=== PATIENT | female | born 1990 | race African-American/Black ===

== ENCOUNTER 2016-07-13 22:46 | Emergency (ER) | payer SELFPAY ==
[~2016-07-13] VITALS: Ht 170.2 cm; Wt 86.0 kg
[~2016-07-13 22:46] MED LIST: CLIN1CAP5 PO; PROM25SU8 PO; TYLETAB34 PO
[2016-07-13 22:49] VITALS: BP 152/94; PULSE 87; RESP 16; TEMP 98.2; O2SAT 98
[2016-07-13 23:43] LABS: BLOOD, URINE NEG (NEG); COMMENT (UR) CULT NOT INDICATED; CULTURE IF INDICATED CULT NOT INDICATED; GLUCOSE,URINE NEG (NEG); KETONE, URINE NEG (NEG); MUCUS URINE MOD /lpf (OCC); NITRITE,URINE NEG (NEG); SQUAMOUS EPITHELIAL CELL URINE 8 /hpf (0-5); URINE COLOR YELLOW (YELLW/STRAW)
--- NOTE | 2016-07-13 23:43 | PD ---
HPI Chief Complaint: Abdominal Pain Time Seen by Provider: 23:15 Travel History International Travel<30 days: No Contact w/Intl Traveler<30days: No Traveled to known affect area: No History of Present Illness HPI 26-year-old female complains of pain, low abdominal pain. Patient states that she started having low abdominal pain sharp pain constant pain since yesterday. Patient started having low back pain this morning. Patient denies any headache. Patient denies any chest pain or shortness of breath. Patient denies any dysuria or frequency. Patient denies any vaginal discharge or bleeding. Patient states the back pain is sharp pain in cramping pain constant pain also. Patient states that the back pain is worse with movement. On a scale of 1-10 the pain is an 8. PFSH Past Medical History Immunizations Current: Yes Influenza Vaccination: No ?: Unknown LMP: 17 : 1 : 1 Past Surgical History Oral Surgery: Yes (7 TEETH REMOVAL ) Social History Alcohol Use: Yes (OCC) Tobacco Use: No (OCC) Substance Use: No Allergies-Medications (Allergen,Severity, Reaction): Coded Allergies: No Known Allergies (Unverified , 07/13/16) Reported Meds & Prescriptions Reported Meds & Active Scripts Active Review of Systems General / Constitutional: No: Fever Eyes: No: Visual changes HENT: No: Headaches Cardiovascular: No: Chest Pain or Discomfort Respiratory: No: Shortness of Breath Gastrointestinal: Positive: Abdominal Pain Genitourinary: No: Dysuria Musculoskeletal: No: Pain Skin: No Rash Neurologic: No: Weakness Psychiatric: No: Depression Endocrine: No: Polydipsia Hematologic/Lymphatic: No: Easy Bruising Physical Exam Narrative GENERAL: Well-nourished, well-developed patient. SKIN: Focused skin assessment warm/dry. HEAD: Normocephalic. EYES: No scleral icterus. No injection or drainage. NECK: Supple, trachea midline. No JVD or lymphadenopathy. CARDIOVASCULAR: Regular rate and rhythm without murmurs, gallops, or rubs. RESPIRATORY: Breath sounds equal bilaterally. No accessory muscle use. GASTROINTESTINAL: Abdomen soft, nondistended. Mild to moderate tenderness on palpation lower abdominal suprapubic area, no rebound tenderness no mass. MUSCULOSKELETAL: No cyanosis, or edema. BACK: Moderate tenderness on palpation lumbar area, without obvious deformity. No CVA tenderness. Neurologic exam normal. [employer] exam: Patient has small amount a whitish discharge in the vaginal vault. Questionable cervical motion tenderness. Uterus nonenlarged mild to moderate tenderness on palpation. No adnexal mass or tenderness. Data Data Last Documented VS Vital Signs Date Time Temp Pulse Resp B/P Pulse Ox O2 Delivery O2 Flow Rate FiO2 07/13/16 22:49 98.2 87 16 152/94 98 Room Air Orders Ed Urine Pregnancytest Poc (07/13/16 23:12) Urinalysis - C+S If Indicated (07/13/16 23:12) Complete Blood Count With Diff (07/13/16 23:37) Comprehensive Metabolic Panel (07/13/16 23:37) Gc And Chlamydia Pcr (07/13/16 23:37) Wet Prep Profile (07/13/16 23:37) Iv Access Insert/Monitor (07/13/16 23:37) Spine, Lumbar - Ltd (Ap & Lat) (07/13/16 23:43) Ketorolac Inj (Toradol Inj) (07/14/16 01:15) Ceftriaxone Inj (Rocephin Inj) (07/14/16 01:15) Azithromycin Powd Pack (Zithromax Powd P (07/14/16 01:15) Labs Laboratory Tests Test 07/13/16 07/14/16 07/14/16 23:15 00:30 01:05 Urine Color YELLOW Urine Turbidity HAZY Urine pH 6.0 Urine Specific [place] 1.036 Urine Protein 30 mg/dL Urine Glucose (UA) NEG mg/dL Urine Ketones NEG mg/dL Urine Occult Blood NEG Urine Nitrite NEG Urine Bilirubin NEG Urine Urobilinogen 2.0 MG/DL Urine Leukocyte Esterase SMALL Urine RBC 1 /hpf Urine WBC 1 /hpf Urine Squamous Epithelial 8 /hpf Cells Urine Mucus MOD /lpf Microscopic Urinalysis Comment CULT NOT INDICATED White Blood Count 10.8 TH/MM3 Red Blood Count 4.07 MIL/MM3 Hemoglobin 11.8 GM/DL Hematocrit 35.9 % Mean Corpuscular Volume 88.2 FL Mean Corpuscular Hemoglobin 29.0 PG Mean Corpuscular Hemoglobin 32.9 % Concent Red Cell Distribution Width 12.6 % Platelet Count 234 TH/MM3 Mean Platelet Volume 9.9 FL Neutrophils (%) (Auto) 62.0 % Lymphocytes (%) (Auto) 26.5 % Monocytes (%) (Auto) 7.2 % Eosinophils (%) (Auto) 4.0 % Basophils (%) (Auto) 0.3 % Neutrophils # (Auto) 6.7 TH/MM3 Lymphocytes # (Auto) 2.9 TH/MM3 Monocytes # (Auto) 0.8 TH/MM3 Eosinophils # (Auto) 0.4 TH/MM3 Basophils # (Auto) 0.0 TH/MM3 CBC Comment DIFF FINAL Differential Comment Sodium Level 141 MEQ/L Potassium Level 3.9 MEQ/L Chloride Level 107 MEQ/L Carbon Dioxide Level 27.1 MEQ/L Anion Gap 7 MEQ/L Blood Urea Nitrogen 14 MG/DL Creatinine 0.86 MG/DL Estimat Glomerular Filtration 98 ML/MIN Rate Random Glucose 107 MG/DL Calcium Level 8.6 MG/DL Total Bilirubin 0.3 MG/DL Aspartate Amino Transf 15 U/L (AST/SGOT) Alanine Aminotransferase 20 U/L (ALT/SGPT) Alkaline Phosphatase 81 U/L Total Protein 7.8 GM/DL Albumin 3.5 GM/DL Clue Cells (Wet Prep) NONE SEEN Vaginal Trichomonas (Wet Prep) NONE SEEN Vaginal Yeast (Wet Prep) NONE SEEN MDM Medical Decision Making Medical Screen Exam Complete: Yes Emergency Medical Condition: Yes Interpretation(s) 1:06 AM. Last Impressions Lumbar Spine X-Ray 07/13/16 4003 Signed Impressions: Service Date/Time: Thursday, July 14, 2016 00:05 - CONCLUSION: Unremarkable study. Kay Keen MD 1:06 AM. CBC within normal limit. UA is negative. 1:49 AM. CMP within normal limit. Wet prep negative. Differential Diagnosis Differential diagnosis including musculoskeletal, UTI, pyelonephritis, nephrolithiasis, dysmenorrhea, cervicitis, PID, ovarian cyst, ovarian torsion, ectopic . Narrative Course 26-year-old female with low abdominal pain and low back pain. Toradol 30 mg IV. Rocephin 1 g IV. Zithromax 1 g by mouth. Diagnosis Primary Impression: Cervicitis Additional Impression: Lumbar strain Qualified Code: S39.012A - Lumbar strain, initial encounter Patient Instructions: General Instructions Additional Instructions: Take medications as directed. Follow-up with personal physician. Return if worse. Med/Other Pt SpecificInfo: Prescription(s) given Scripts Methocarbamol (Robaxin)750 Mg Xsl298 Mg PO QID #40 TAB Ref 0 Prov:Riley aFust MD 07/14/16 Meloxicam (Mobic)15 Mg Tab15 Mg PO DAILY #20 TAB Prov:Riley Faust MD 07/14/16 Disposition: 01 DISCHARGE HOME Condition: Stable Riley Faust MD Jul 13, 2016 23:43
--- NOTE | 2016-07-14 00:20 | RADRPT ---
EXAM DATE/TIME: 07/14/2016 00:05 [facility] COMPARISON: No previous studies available for comparison. INDICATIONS : Lower back pain. MEDICAL HISTORY : None. SURGICAL HISTORY : None. ENCOUNTER: Initial ACUITY: 1 day PAIN SCORE: 4/10 LOCATION: Lumbar FINDINGS: No appreciable compression deformities, spondylolisthesis, or spondylolysis is seen. The disc spaces are well-maintained for technique. CONCLUSION: Unremarkable study. Kay Keen MD on July 14, 2016 at 0:18 Board Certified Radiologist. This report was verified electronically.
[2016-07-14 00:56] LABS: AUTOMATED NEUTROPHIL # 6.7 TH/MM3 (1.8-7.7); BASOPHIL % 0.3 % (0.0-2.0); EOSINOPHIL # 0.4 TH/MM3 (0-0.4); HEMATOCRIT 35.9 % (35.0-46.0); HEMO FLAGS DIFF FINAL; LYMPH % 26.5 % (9.0-44.0); LYMPHOCYTE # 2.9 TH/MM3 (1.0-4.8); MEAN CELL VOLUME 88.2 FL (80.0-100.0); MEAN CORPUSCULAR HGB CONC 32.9 % (32.0-36.0); MONO % 7.2 % (0.0-8.0); PLATELET COUNT 234 TH/MM3 (150-450); RED BLOOD COUNT 4.07 MIL/MM3 (4.00-5.30); RED CELL DISTRIBUTION WIDTH 12.6 % (11.6-17.2); WHITE BLOOD COUNT 10.8 TH/MM3 (4.0-11.0)
[2016-07-14] MEDS ORDERED: cefTRIAXone INJ 1,000 MG in SODIUM CHLORIDE 0.9% INJ 100 ML IV ONE (01:15)
[2016-07-14] MEDS ORDERED: KETOROLAC TROMETHAMINE 30 MG/ML (IVP) VIAL IV PUSH ONE (01:15)
[2016-07-14] MEDS ORDERED: AZITHROMYCIN PWD FOR SUSP 1 GM PACKET PO ONE (01:15)
[2016-07-14 01:28] LABS: ANION GAP 7 MEQ/L (5-15); AST (GOT) 15 U/L (15-37); BICARBONATE 27.1 MEQ/L (21.0-32.0); BLOOD UREA NITROGEN 14 MG/DL (7-18); CHLORIDE 107 MEQ/L (98-107); GLOMERULAR FILTRATION RATE 98 ML/MIN (>89); POTASSIUM 3.9 MEQ/L (3.5-5.1); SODIUM (NA) 141 MEQ/L (136-145)
[2016-07-14 01:31] LABS: ALKALINE PHOSPHATASE 81 U/L (45-117); ALT (GPT) 20 U/L (10-53); TOTAL BILIRUBIN ADULT 0.3 MG/DL (0.2-1.0)
[2016-07-14] MEDS ORDERED: MOBI15TA PO (01:51)
[2016-07-14] MEDS ORDERED: ROBA750T PO (01:51)
[2016-07-14] MEDS ORDERED: ONDANSETRON HCL 4 MG/2 ML VIAL IV PUSH ONE (02:45)
[2016-07-14 02:48] VITALS: BP 140/78; PULSE 86; RESP 18; TEMP 98.7; O2SAT 100
[2016-07-14 02:50] VITALS: RESP 18
[2016-07-14 03:17] LABS: CHLAMYDIA PCR NOT DETECTED (NOT DETECT); NEISSERIA PCR NOT DETECTED (NOT DETECT)
== END 2016-07-14 02:45 | disposition home or self-care (01) ==
LOC: NEPE 22:46
DX: N72 Inflammatory disease of cervix uteri (principal); S39.012A Strain of muscle, fascia and tendon of lower back, initial encounter; X58.XXXA Exposure to other specified factors, initial encounter
CPT/HCPCS: 72100; 80053; 81001; 84703; 85025; 87210; 87491; 87591; 96365; 96375; 99284; J0696; J1885; J2405

== ENCOUNTER 2016-07-16 06:47 | Emergency (ER) | payer SELFPAY ==
[~2016-07-16 06:47] MED LIST changes: -CLIN1CAP5 PO; +MOBI15TA PO; -PROM25SU8 PO; +ROBA750T PO; -TYLETAB34 PO
[2016-07-16 06:48] VITALS: BP 135/81; PULSE 96; RESP 18; TEMP 97.8; O2SAT 97
--- NOTE | 2016-07-16 07:28 | PD ---
HPI Chief Complaint: Back/ Neck Pain or Injury Time Seen by Provider: 07:26 Travel History International Travel<30 days: No Contact w/Intl Traveler<30days: No Traveled to known affect area: No History of Present Illness HPI 26-year-old female presents to the emergency Department with complaint of low back pain times one week. She says she was seen here 2 days ago, but has had worsening upper back pain. Denies injury, heavy lifting, straining. She's been taking Mobic and Robaxin as prescribed with minimal relief of symptoms. Denies fever, vomiting. Denies IV drug use, cancer. Denies encopresis, incontinence, saddle anesthesias. Denies paresthesias, loss of sensation, decreased range of motion, decreased strength to bilateral lower extremities. States the pain radiates down both legs. Pain is worse with movement and ambulation. No known relieving factors. No known allergies. Has no other medical complaints. No other modifying factors or associated signs and symptoms. PFSH Past Medical History Immunizations Current: Yes ?: Not : 1 : 1 Past Surgical History Oral Surgery: Yes (7 TEETH REMOVAL ) Social History Alcohol Use: Yes (OCC) Tobacco Use: No (OCC) Substance Use: No Allergies-Medications (Allergen,Severity, Reaction): Coded Allergies: No Known Allergies (Unverified , 07/16/16) Reported Meds & Prescriptions Reported Meds & Active Scripts Active Robaxin (Methocarbamol) 750 Mg Tab 750 Mg PO QID Mobic (Meloxicam) 15 Mg Tab 15 Mg PO DAILY Review of Systems Except as stated in HPI: all other systems reviewed are Neg Physical Exam Narrative GENERAL: Well-nourished, well-developed female patient, in no acute distress; afebrile, nontoxic-appearing SKIN: Warm and dry. HEAD: Atraumatic. Normocephalic. EYES: Pupils equal and round. No scleral icterus. No injection or drainage. ENT: Mucosa pink and moist. Airway patent. NECK: Trachea midline. CARDIOVASCULAR: Regular rate. RESPIRATORY: No accessory muscle use. GASTROINTESTINAL: Rounded. MUSCULOSKELETAL: Bilateral lower extremities supple and non-tense with 2+ pedal pulses and sensory intact; with full range of motion and 5/5 strength. 2 + DTRs bilaterally. Active dorsiflexion and extension of bilateral feet. Bilateral straight leg raise is positive for low back pain. Ambulatory in room with guarded gait. Sitting up in bed at 90. No obvious deformities. No clubbing. No cyanosis. No edema. BACK: No midline point tenderness on palpation of the lumbar spine. Tenderness on palpation of bilateral iliosacral area. No obvious deformities. NEUROLOGICAL: Awake and alert. Oriented 3. No obvious cranial nerve deficits. Motor grossly within normal limits. Normal speech. Moves all extremities. 5/5 strength to all extremities. Sensory intact. PSYCHIATRIC: Appropriate mood and affect; insight and judgment normal. Data Data Last Documented VS Vital Signs Date Time Temp Pulse Resp B/P Pulse Ox O2 Delivery O2 Flow Rate FiO2 07/16/16 06:48 97.8 96 18 135/81 97 Room Air Orders Ketorolac Inj (Toradol Inj) (07/16/16 07:30) Orphenadrine Inj (Norflex Inj) (07/16/16 07:30) MDM Medical Decision Making Medical Screen Exam Complete: Yes Emergency Medical Condition: Yes Medical Record Reviewed: Yes Differential Diagnosis Sciatica, acute low back pain, low back strain Narrative Course 26-year-old female with continued low back pain. She was seen on July 13 and was treated for cervicitis. I reviewed her medical records and the patient was negative for chlamydia, gonorrhea, trichomoniasis, clue cells, vaginal yeast; urinalysis was negative for infection; CBC and CMP were unremarkable. Lumbar spine x-ray done on July 13 was unremarkable. Patient denies IV drug use or cancer. Denies fever, vomiting. Denies encopresis, incontinence, saddle anesthesias. Patient is ambulatory in the room with a guarded gait. She is afebrile and nontoxic-appearing. Toradol and Norflex administered in the ER. Instructed patient to continue medications as prescribed. Patient verbalizes understanding and agreement with treatment plan. Patient is medically cleared and stable for discharge. Discussed reasons to return to the emergency department. Instructed patient to follow up with primary care provider. Patient agrees with treatment plan. The patients vital signs are stable and the patient is stable for outpatient follow-up and treatment. Patient discharged home, stable and in no acute distress. Diagnosis Primary Impression: Low back pain Qualified Code: M54.5 - Bilateral low back pain, unspecified chronicity, with sciatica presence unspecified Referrals: Primary Care Physician Patient Instructions: Acute Low Back Pain (ED), Back Pain (ED), General Instructions, Low Back Strain (ED), Sciatica (ED) Departure Forms: Tests/Procedures, Work Release Enter return to work date: Jul 19, 2016 Additional Instructions: Tylenol or ibuprofen as directed and as needed for pain Robaxin as prescribed and as needed for muscle spasms Heating pad and/or ice to affected area to reduce pain Avoid aggravating activities; increase activity as tolerated Follow-up with primary care provider Med/Other Pt SpecificInfo: No Change to Meds, No Meds Exist/No RX given Disposition: 01 DISCHARGE HOME Condition: Stable Nikole Ambrose Jul 16, 2016 07:28
[2016-07-16] MEDS ORDERED: ORPHENADRINE INJ 60 MG/2 ML AMP IM ONE (07:30)
[2016-07-16] MEDS ORDERED: KETOROLAC TROMETHAMINE 60 MG/2 ML (IM) VIAL IM ONE (07:30)
== END 2016-07-16 07:46 | disposition home or self-care (01) ==
LOC: NEPK 06:47
DX: M54.5 Low back pain (principal)
CPT/HCPCS: 96372; 99284; J1885; J2360

== ENCOUNTER 2016-09-29 16:44 | Emergency (ER) | payer SELFPAY ==
[~2016-09-29] VITALS: Ht 170.2 cm; Wt 95.0 kg
[2016-09-29 18:18] LABS: AUTOMATED NEUTROPHIL # 5.8 TH/MM3 (1.8-7.7); BASOPHIL % 0.3 % (0.0-2.0); EOSINOPHIL # 0.2 TH/MM3 (0-0.4); EOSINOPHIL % 2.5 % (0.0-4.0); HEMATOCRIT 35.6 % (35.0-46.0); HEMO FLAGS DIFF FINAL; LYMPH % 25.6 % (9.0-44.0); LYMPHOCYTE # 2.4 TH/MM3 (1.0-4.8); MEAN CELL VOLUME 91.8 FL (80.0-100.0); MEAN CORPUSCULAR HGB CONC 32.6 % (32.0-36.0); MONO % 10.4 % (0.0-8.0); NEUT % 61.2 % (16.0-70.0); PLATELET COUNT 237 TH/MM3 (150-450); RED BLOOD COUNT 3.88 MIL/MM3 (4.00-5.30); RED CELL DISTRIBUTION WIDTH 12.9 % (11.6-17.2); WHITE BLOOD COUNT 9.4 TH/MM3 (4.0-11.0)
[2016-09-29 18:28] LABS: BLOOD, URINE NEG (NEG); COMMENT (UR) CULT NOT INDICATED; CULTURE IF INDICATED CULT NOT INDICATED; GLUCOSE,URINE NEG (NEG); KETONE, URINE NEG (NEG); MUCUS URINE FEW /lpf (OCC); NITRITE,URINE NEG (NEG); SQUAMOUS EPITHELIAL CELL URINE 8 /hpf (0-5); URINE COLOR YELLOW (YELLW/STRAW)
[2016-09-29 18:47] LABS: ANION GAP 6 MEQ/L (5-15); AST (GOT) 9 U/L (15-37); BICARBONATE 25.5 MEQ/L (21.0-32.0); BLOOD UREA NITROGEN 8 MG/DL (7-18); CHLORIDE 107 MEQ/L (98-107); GLOMERULAR FILTRATION RATE 108 ML/MIN (>89); POTASSIUM 3.6 MEQ/L (3.5-5.1); SODIUM (NA) 138 MEQ/L (136-145)
[2016-09-29 18:48] LABS: ALT (GPT) 15 U/L (10-53)
[2016-09-29 19:07] LABS: ALKALINE PHOSPHATASE 80 U/L (45-117); BETA HCG QUANT 32078 MIU/ML (0-5); TOTAL BILIRUBIN ADULT 0.7 MG/DL (0.2-1.0)
--- NOTE | 2016-09-29 19:19 | PD ---
HPI Chief Complaint: Abdominal Pain Time Seen by Provider: 19:17 Travel History International Travel<30 days: No Contact w/Intl Traveler<30days: No Traveled to known affect area: No History of Present Illness HPI Patient comes in complaining of suprapubic abdominal pain is crampy like in nature began a week ago. Pain radiates to left lower quadrant. Patient reports associated nausea but denies any vomiting, diarrhea, loss change in bowel or bladder, vaginal discharge, chest pain, shortness breath, back pain, or fevers. Patient reports she is sexually active with one partner and does not use protection. Patient states pain comes and goes on it. States pain resolves with rest. Patient denies doing anything else for this. Patient denies anything making the pain worse. Patient reports she is A1 PFSH Past Medical History Immunizations Current: Yes ?: Unknown LMP: 08/15/16 : 1 : 1 Past Surgical History Oral Surgery: Yes (7 TEETH REMOVAL ) Social History Alcohol Use: Yes (OCC) Tobacco Use: No (OCC) Substance Use: No Allergies-Medications (Allergen,Severity, Reaction): Coded Allergies: No Known Allergies (Unverified , 07/16/16) Reported Meds & Prescriptions Reported Meds & Active Scripts Active Robaxin (Methocarbamol) 750 Mg Tab 750 Mg PO QID Mobic (Meloxicam) 15 Mg Tab 15 Mg PO DAILY Review of Systems Except as stated in HPI: all other systems reviewed are Neg Physical Exam Narrative GENERAL: Well-developed, overly nourished, in no acute distress, and non-ill appearing. SKIN: Focused skin assessment warm and dry. HEAD: Atraumatic. Normocephalic. EYES: Pupils equal and round. EOMI. No scleral icterus. No injection or drainage. ENT: No nasal bleeding or discharge. Mucous membranes pink and moist. NECK: Trachea midline. Supple. No nuclear rigidity. CARDIOVASCULAR: Regular rate and rhythm. No murmur appreciated. RESPIRATORY: No accessory muscle use. No respiratory distress. Clear to auscultation. Breath sounds equal bilaterally. GASTROINTESTINAL: Abdomen soft, nondistended, and no guarding. Hepatic and splenic margins not palpable. Normal bowel sounds 4. No pulsatile mass. Patient reports tenderness to palpation suprapubic and left lower quadrant. GENITOURINARY: Normal external genitalia without lesions or erythema. Vaginal vault without blood, but milky white discharge. Cervical os was closed without drainage. No cervical motion tenderness. Uterus nontender and nonenlarged. Right adnexa nontender without palpable mass. Left adnexa patient reports tenderness without palpable mass. Exam was performed with presence of staff sonographer Shira at all times. MUSCULOSKELETAL: No obvious deformities. No clubbing. No cyanosis. No edema. Full range of motion. NEUROLOGICAL: Awake and alert. No obvious cranial nerve deficits. Motor grossly within normal limits. Normal speech. PSYCHIATRIC: Appropriate mood and affect; insight and judgment normal. Data Data Orders Complete Blood Count With Diff (09/29/16 17:05) Comprehensive Metabolic Panel (09/29/16 17:05) Urinalysis - C+S If Indicated (09/29/16 17:05) Ed Urine Pregnancytest Poc (09/29/16 17:05) Iv Access Insert/Monitor (09/29/16 17:05) Oxygen Administration (09/29/16 17:05) Oximetry (09/29/16 17:05) Lipase (09/29/16 17:05) Beta Hcg (Quant/Titer) (09/29/16 17:05) Gc And Chlamydia Pcr (09/29/16 19:04) Wet Prep Profile (09/29/16 19:04) Complete Rh (09/29/16 19:36) Us Pelvis (Ques Pr/Ect)W Trans (09/29/16 ) Labs Laboratory Tests Test 09/29/16 09/29/16 09/29/16 17:11 17:21 19:40 Urine Color YELLOW Urine Turbidity HAZY Urine pH 6.0 Urine Specific [place] 1.015 Urine Protein TRACE mg/dL Urine Glucose (UA) NEG mg/dL Urine Ketones NEG mg/dL Urine Occult Blood NEG Urine Nitrite NEG Urine Bilirubin NEG Urine Urobilinogen LESS THAN 2.0 MG/DL Urine Leukocyte Esterase LARGE Urine RBC 2 /hpf Urine WBC 7 /hpf Urine Squamous Epithelial 8 /hpf Cells Urine Amorphous Sediment RARE Urine Mucus FEW /lpf Microscopic Urinalysis Comment CULT NOT INDICATED White Blood Count 9.4 TH/MM3 Red Blood Count 3.88 MIL/MM3 Hemoglobin 11.6 GM/DL Hematocrit 35.6 % Mean Corpuscular Volume 91.8 FL Mean Corpuscular Hemoglobin 30.0 PG Mean Corpuscular Hemoglobin 32.6 % Concent Red Cell Distribution Width 12.9 % Platelet Count 237 TH/MM3 Mean Platelet Volume 10.3 FL Neutrophils (%) (Auto) 61.2 % Lymphocytes (%) (Auto) 25.6 % Monocytes (%) (Auto) 10.4 % Eosinophils (%) (Auto) 2.5 % Basophils (%) (Auto) 0.3 % Neutrophils # (Auto) 5.8 TH/MM3 Lymphocytes # (Auto) 2.4 TH/MM3 Monocytes # (Auto) 1.0 TH/MM3 Eosinophils # (Auto) 0.2 TH/MM3 Basophils # (Auto) 0.0 TH/MM3 CBC Comment DIFF FINAL Differential Comment Sodium Level 138 MEQ/L Potassium Level 3.6 MEQ/L Chloride Level 107 MEQ/L Carbon Dioxide Level 25.5 MEQ/L Anion Gap 6 MEQ/L Blood Urea Nitrogen 8 MG/DL Creatinine 0.79 MG/DL Estimat Glomerular Filtration 108 ML/MIN Rate Random Glucose 78 MG/DL Calcium Level 8.2 MG/DL Total Bilirubin 0.7 MG/DL Aspartate Amino Transf 9 U/L (AST/SGOT) Alanine Aminotransferase 15 U/L (ALT/SGPT) Alkaline Phosphatase 80 U/L Total Protein 7.4 GM/DL Albumin 3.6 GM/DL Lipase 221 U/L Human Chorionic Gonadotropin, 8[address]15 MIU/ML Quant Clue Cells (Wet Prep) PRESENT Vaginal Trichomonas (Wet Prep) NONE SEEN Vaginal Yeast (Wet Prep) NONE SEEN MDM Medical Decision Making Medical Screen Exam Complete: Yes Emergency Medical Condition: Yes Interpretation(s) Ultrasound read by the radiologist shows: Viable IUP. Differential Diagnosis UTI, ectopic , normal pains , constipation, ovarian cyst, cervicitis, electrolyte abnormality, PID, other Narrative Course The patient presented with lower abdominal/pelvic pain and the patient was minimal to nontender. The pain is not rhythmic. The patient otherwise appeared comfortable and hydrated. There was no vaginal bleeding. US was performed and showed SIUP at 6 weeks 2 days and normal cardiac activity. Urine analysis revealed no evidence of UTI. There was no evidence of cervicitis or PID. Pain is most likely due to ligamental pains or normal discomforts of , possibly due to ovarian cyst or constipation and evaluation revealed no clinical evidence or picture of acute ovarian torsion at this time. The patient appears comfortable and no distress and no vomiting. The patient is to return if worsens, pain worsens or changes, develops vaginal bleeding, develop persistent fever, inability to tolerate fluids with or without vomiting, unable to establish follow up or as needed. There was no evidence of an acute, surgical abdomen at this time. There was no clinical evidence to support cholecystitis/cholelithiasis, pancreatitis, perforation of gastric ulcer, colitis, diverticulitis, obstruction, abdominal or femoral herniation, volvulus , early appendicitis, or hernial incarceration or strangulation at this time. There was no evidence to support vascular pathology such as AAA, mesenteric ischemia , nor GIB. There was also no clinical evidence by history, exam or risk factors to suggest atypical presentation of cardiac disease such as ACS, AMI or atypical angina. No evidence to suggest early labor or obvious miscarriage at this time. The patient agreed with plan of care and management. The patient was instructed to follow up with their OB physician within the next 2 days or to return here if unable to establish outpatient follow-up. Patient in no obvious distress upon re-evaluation. All pertinent laboratory/ Radiology result(s) discussed with patient with exception of gonorrhea and Chlamydia and Rh are pending at this time. Patient is not bleeding does not require a RhoGAM shot if Rh isn't compatible.. Will wait and let OB to treat patient's bacterial vaginosis. Discussed patient with Dr. Anderson prior to discharge, who is in agreement with plan of care and disposition. Any questions/ concerns in reference to patient diagnosis/condition discussed and clarified prior to patient's discharge. Reinforced sheer importance of close follow up with patient's OB 2 days for reevaluation. Instructed patient to return to ED immediately, if symptoms return/worsen. Pt showed understanding of above instructions. Further instructions and recommendations were detailed in discharge paperwork. Pt ambulated without difficulty out of ED at discharge. Diagnosis Primary Impression: Abdominal pain in Qualified Code: O26.891 - Abdominal pain during in first trimester Additional Impression: Bacterial vaginosis [facility] Patient Instructions: Abdominal Pain in (ED), Bacterial Vaginosis ( ED), General Instructions Additional Instructions: Follow-up with your OB or return here in 48 hours for a recheck. Use over-the- counter vitamins. Return to the emergency department sooner if symptoms get worse, fevers, vaginal bleeding, back pain, chest pain, shortness breath, or for other concerns. Disposition: 01 DISCHARGE HOME Condition: Jean Pierre David Sep 29, 2016 19:19
--- NOTE | 2016-09-29 21:05 | RADRPT ---
EXAM DATE/TIME: 09/29/2016 20:17 [facility] COMPARISON: No previous studies available for comparison. INDICATIONS : Pelvic pain. LAB(S): Beta-hC MEDICAL HISTORY : . SURGICAL HISTORY : Dental surgery. ENCOUNTER: Initial ACUITY: 2 days PAIN SCORE: 2/10 LOCATION: Bilateral pelvis MEASUREMENTS: UTERUS: 9.1 x 5.2 x 5.3 cm ENDOMETRIAL STRIPE: >20 mm RIGHT OVARY: 3.2 x 2.2 x 2.0 cm LEFT OVARY: 4.2 x 2.1 x 1.6 cm FREE FLUID: Yes CROWN RUMP LENGTH: 0.54 cm = 6 WKS 2 DAYS FHR: 134 BPM FINDINGS: IUP is present 6 weeks and 2 days with heart 134 beats per minute. There is slight fluid in the cul-de-sac. There is no adnexal mass. CONCLUSION: Viable IUP. Kay Keen MD on September 29, 2016 at 21:02 Board Certified Radiologist. This report was verified electronically.
[2016-09-29 23:43] LABS: CHLAMYDIA PCR NOT DETECTED (NOT DETECT); NEISSERIA PCR NOT DETECTED (NOT DETECT)
[2016-11-01] MEDS ORDERED: CONCCAP2 PO (14:11)
[2016-11-06] MEDS ORDERED: METR500T10 PO (13:03)
[2016-11-06] MEDS ORDERED: TERC0.8C VAGINAL (13:03)
[2016-11-12] MEDS ORDERED: AMPI500C8 PO (16:36)
[2016-11-13] MEDS ORDERED: METR500T10 PO (16:29)
[2016-11-13] MEDS ORDERED: AMPI500C8 PO (16:29)
[2016-11-13] MEDS ORDERED: CONCCAP2 PO (16:29)
[2016-11-13] MEDS ORDERED: TERC0.8C VAGINAL (16:29)
== END 2016-09-29 22:00 | disposition home or self-care (01) ==
LOC: NEPE 16:44
DX: O26.891 Other specified pregnancy related conditions, first trimester (principal); R10.2 Pelvic and perineal pain; R10.32 Left lower quadrant pain; R11.0 Nausea; O23.591 Infection of other part of genital tract in pregnancy, first trimester; N76.0 Acute vaginitis; Z72.0 Tobacco use; Z3A.01 Less than 8 weeks gestation of pregnancy
CPT/HCPCS: 76700; 76817; 80053; 81001; 83690; 84702; 84703; 85025; 86901; 87210; 87491; 87591; 99284

== ENCOUNTER 2016-10-07 10:57 | Emergency (ER) | payer OTHER ==
[2016-10-07 10:58] VITALS: BP 122/80; PULSE 82; RESP 20; TEMP 98.2; O2SAT 99
[2016-10-07 12:01] LABS: BACTERIA, URINE MANY /hpf; BLOOD, URINE MOD (NEG); COMMENT (UR) CULTURE INDICATED; CULTURE IF INDICATED CULTURE INDICATED; GLUCOSE,URINE NEG (NEG); KETONE, URINE 40 mg/dL (NEG); MUCUS URINE MOD /lpf (OCC); NITRITE,URINE NEG (NEG); PH, URINE 6.5 (5.0-8.5); SQUAMOUS EPITHELIAL CELL URINE 33 /hpf (0-5); URINE COLOR YELLOW (YELLW/STRAW)
[2016-10-07] MEDS ORDERED: MACR100C2 PO (12:31)
--- NOTE | 2016-10-07 12:31 | PD ---
HPI Chief Complaint: Related Problem Time Seen by Provider: 11:20 Travel History International Travel<30 days: No Contact w/Intl Traveler<30days: No Traveled to known affect area: No History of Present Illness HPI This is a 26-year-old woman who presents to the emergency department complaining of left-sided abdominal pain. Symptoms been ongoing for the past several weeks. She was seen here for initially. She is found to be . She had ultrasound confirmed IUP. She's had continued pain since then. She has some decreased appetite but no nausea or vomiting. No vaginal discharge or vaginal bleeding. No history of abdominal surgeries. She is to go more than usual but no dysuria. History Past Medical History Medical History: Denies Significant Hx : 2 Social History Alcohol Use: No Tobacco Use: No Allergies-Medications (Allergen,Severity, Reaction): Coded Allergies: No Known Allergies (Unverified , 10/07/16) Reported Meds & Prescriptions Reported Meds & Active Scripts Active Review of Systems Except as stated in HPI: all other systems reviewed are Neg Physical Exam Narrative GENERAL: Well-appearing 26 year-old woman, no acute distress. SKIN: Focused skin assessment warm/dry. HEAD: Atraumatic. Normocephalic. EYES: Pupils equal and round. No scleral icterus. No injection or drainage. ENT: No nasal bleeding or discharge. Mucous membranes pink and moist. NECK: Trachea midline. No JVD. CARDIOVASCULAR: Regular rate and rhythm. No murmur appreciated. RESPIRATORY: No accessory muscle use. Clear to auscultation. Breath sounds equal bilaterally. GASTROINTESTINAL: Abdomen is flat and soft. Minimal left-sided tenderness to palpation more in the lower abdomen. MUSCULOSKELETAL: No obvious deformities. No clubbing. No cyanosis. No edema. NEUROLOGICAL: Awake and alert. No obvious cranial nerve deficits. Motor grossly within normal limits. Normal speech. PSYCHIATRIC: Appropriate mood and affect; insight and judgment normal. Data Data Last Documented VS Vital Signs Date Time Temp Pulse Resp B/P (MAP) Pulse Ox O2 Delivery O2 Flow Rate FiO2 10/07/16 10:58 98.2 82 20 122/80 (94) 99 Room Air Orders Orders Urinalysis - C+S If Indicated (10/07/16 11:28) Ed Poc Ultrasound (10/07/16 ) Urine Culture (10/07/16 11:34) Labs Laboratory Tests Test 10/07/16 11:34 Urine Color YELLOW Urine Turbidity CLOUDY Urine pH 6.5 Urine Specific [place] 1.031 Urine Protein 30 mg/dL Urine Glucose (UA) NEG mg/dL Urine Ketones 40 mg/dL Urine Occult Blood MOD Urine Nitrite NEG Urine Bilirubin NEG Urine Urobilinogen 2.0 MG/DL Urine Leukocyte Esterase LARGE Urine RBC 15 /hpf Urine WBC 15 /hpf Urine Squamous Epithelial Cells 33 /hpf Urine Bacteria MANY /hpf Urine Mucus MOD /lpf Microscopic Urinalysis Comment CULTURE INDICATED MDM Medical Decision Making Medical Screen Exam Complete: Yes Emergency Medical Condition: Yes Interpretation(s) Plan care ultrasound: Focus transabdominal child perform immediate value well-being. Unable to really visualize the IUP. UA: Pyuria. Differential Diagnosis UTI, pain, infection, other Narrative Course Medical decision-making new para this is a well-appearing 26 old woman presents to the emergency department with pain. She looks well. A little bit tenderness. She has some pyuria. Check culture. We'll treat for infection. Recommend outpatient follow-up. Tylenol for pain. Diagnosis Primary Impression: Abdominal pain in Med/Other Pt SpecificInfo: Prescription(s) given Scripts Nitrofurantoin Monohydrate Macrocrystals (Macrobid) 100 Mg Capsule 100 MG PO BID for Infection for 5 Days, CAP 0 Refills Prov: Rickey Hollingsworth MD 10/07/16 Disposition: 01 DISCHARGE HOME Condition: Stable Rickey Hollingsworth MD Oct 07, 2016 12:31
[2016-10-07] MEDS ORDERED: PYRI25TA2 PO (12:47)
[2016-11-01] MEDS ORDERED: CONCCAP2 PO (14:11)
[2016-11-06] MEDS ORDERED: TERC0.8C VAGINAL (13:03)
[2016-11-06] MEDS ORDERED: METR500T10 PO (13:03)
[2016-11-12] MEDS ORDERED: AMPI500C8 PO (16:36)
[2016-11-13] MEDS ORDERED: AMPI500C8 PO (16:29)
[2016-11-13] MEDS ORDERED: METR500T10 PO (16:29)
[2016-11-13] MEDS ORDERED: TERC0.8C VAGINAL (16:29)
[2016-11-13] MEDS ORDERED: CONCCAP2 PO (16:29)
== END 2016-10-07 12:51 | disposition home or self-care (01) ==
LOC: NEPD 10:57
DX: O26.90 Pregnancy related conditions, unspecified, unspecified trimester (principal); R10.9 Unspecified abdominal pain
CPT/HCPCS: 81001; 87086; 99284

== ENCOUNTER 2016-11-20 23:12 | Emergency (ER) | payer OTHER ==
[~2016-11-20] VITALS: Ht 170.2 cm; Wt 85.0 kg
[~2016-11-20 23:12] MED LIST changes: +AMPI500C8 PO; +CONCCAP2 PO; +METR500T10 PO; -MOBI15TA PO; -ROBA750T PO; +TERC0.8C VAGINAL
[2016-11-20 23:14] VITALS: BP 126/85; PULSE 101; RESP 16; TEMP 98.7; O2SAT 97
[2016-11-20] MEDS ORDERED: SODIUM CHLOR 0.9% 1000 ML INJ 1,000 ML IV ONE (23:59)
[2016-11-21 00:23] LABS: AUTOMATED NEUTROPHIL # 7.5 TH/MM3 (1.8-7.7); BASOPHIL % 0.1 % (0.0-2.0); EOSINOPHIL # 0.3 TH/MM3 (0-0.4); EOSINOPHIL % 3.1 % (0.0-4.0); HEMATOCRIT 33.8 % (35.0-46.0); HEMO FLAGS DIFF FINAL; LYMPH % 18.5 % (9.0-44.0); MEAN CELL VOLUME 90.1 FL (80.0-100.0); MEAN CORPUSCULAR HEMOGLOBIN 29.6 PG (27.0-34.0); MEAN CORPUSCULAR HGB CONC 32.8 % (32.0-36.0); MONO % 9.2 % (0.0-8.0); NEUT % 69.1 % (16.0-70.0); PLATELET COUNT 230 TH/MM3 (150-450); RED BLOOD COUNT 3.75 MIL/MM3 (4.00-5.30); RED CELL DISTRIBUTION WIDTH 13.2 % (11.6-17.2); WHITE BLOOD COUNT 10.8 TH/MM3 (4.0-11.0)
[2016-11-21 00:31] LABS: BLOOD, URINE NEG (NEG); CALCIUM OXALATE CRYSTALS,URINE OCC /hpf; COMMENT (UR) CULT NOT INDICATED; CULTURE IF INDICATED CULT NOT INDICATED; GLUCOSE,URINE NEG (NEG); KETONE, URINE NEG (NEG); MUCUS URINE FEW /lpf (OCC); NITRITE,URINE NEG (NEG); PH, URINE 7.5 (5.0-8.5); SQUAMOUS EPITHELIAL CELL URINE 2 /hpf (0-5); URINE COLOR YELLOW (YELLW/STRAW)
--- NOTE | 2016-11-21 00:42 | PD ---
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 The pain is constant although it waxes and wanes in severity. She is a at 13 plus weeks gestation with her first . She also noticed when taking her shower tonight that she had a thick chunky discharge. It is off white. She denies any odor. She has urinary frequency, however she denies any urinary urgency or dysuria. She cannot recall the name of her [employer]. She denies having any new sexual partners or concerns about sexually transmitted infections. The patient denies any history of fevers, neck pain, chest pain, shortness of breath, vomiting, diarrhea, dysuria, or neurologic symptoms. She has had a dry cough for a couple of weeks. LMP: beginning of August. [facility] Past Medical History Narrative Medical The patient's past medical history is reportedly none. Medical History: Denies Significant Hx Diminished Hearing: No Immunizations Current: Yes ?: LMP: 08/27 : 2 : 1 Past Surgical History Narrative Surgical The patient's past surgical history is reportedly dental surgery. Oral Surgery: Yes (7 TEETH REMOVAL ) Social History Alcohol Use: No Tobacco Use: No Substance Use: No Allergies-Medications (Allergen,Severity, Reaction): Coded Allergies: No Known Allergies (Unverified , 11/20/16) Reported Meds & Prescriptions Reported Meds & Active Scripts Active Terazol 7 Vaginal Cream (Terconazole Vaginal Cream) 0.4 % Cream 1 Appl VAGINAL HS 7 Days 1 applicatorful intravaginally x 7 nights Ampicillin 500 Mg Cap 500 Mg PO QID 10 Days Terconazole Vaginal Cream 0.8 % Cream 1 Appl VAGINAL HS For 3 days. Metronidazole 500 Mg Tab 500 Mg PO BID Concept Dha 53.5-38-1 mg ( Vit W/ Fe Fum-Iron Po) 35 Mg-1 Mg-200 Mg Cap 1 Caplet PO DAILY Review of Systems Except as stated in HPI: all other systems reviewed are Neg General / Constitutional: No: Fever Eyes: No: Visual changes HENT: No: Headaches Cardiovascular: No: Chest Pain or Discomfort Respiratory: No: Shortness of Breath Gastrointestinal: Positive: Abdominal Pain, No: Nausea, Vomiting, Diarrhea Genitourinary: Positive: Pelvic Pain, Discharge, No: Dysuria, Vaginal Bleeding Musculoskeletal: No: Pain Skin: No Rash Neurologic: No: Weakness Psychiatric: No: Depression Endocrine: No: Polydipsia Hematologic/Lymphatic: No: Easy Bruising Physical Exam Narrative General: The patient is a well-developed well-nourished female in no acute distress Head and Neck exam: Head is normocephalic atraumatic. Eyes: EOMI, pupils are equal round and reactive to light. Nose: Midline septum with pink mucous membranes Mouth: Dentition unremarkable. Moist mucus membranes. Posterior oropharynx is not erythematous. No tonsillar hypertrophy. Uvula midline. Airway patent. Neck: No palpable lymphadenopathy. No nuchal rigidity. No thyromegaly. Cardiovascular: Regular rate and rhythm without murmurs, gallops, or rubs. Lungs: Clear to auscultation bilaterally. No wheezes, rhonchi, or rales. Abdomen: Soft, with suprapubic abdominal tenderness on palpation. No other tenderness on palpation of the other quadrants of the abdomen. Normal bowel sounds are audible. No guarding, rebound, or rigidity. Normal bowel sounds are audible. No tenderness on palpation of McBurney's point. Extremities: No clubbing, cyanosis, or edema. 2+ pulses in all 4 extremities. Back: No costovertebral angle tenderness to palpation. Neurologic Exam: Grossly nonfocal. Skin Exam: No rash noted. Intact skin that is warm and dry. Gynecologic exam: The patient was placed in the dorsal lithotomy position. Her external genitalia were examined. She had no evidence of rash or lesions. The speculum was placed into her vagina and the cervix was identified. She had a thick yellow discharge noted associated with cervical friability. On Bimanual exam: she has no cervical motion tenderness. No adnexal tenderness or prominence noted on palpation. No uterine tenderness, however her uterus did palpate to be enlarged consistent with her . Data Data Last Documented VS Vital Signs Date Time Temp Pulse Resp B/P (MAP) Pulse Ox O2 Delivery O2 Flow Rate FiO2 11/21/16 03:32 11/21/16 03:15 98.0 86 18 100 Room Air Orders Orders Beta Hcg (Quant/Titer) (11/20/16 23:59) Complete Blood Count With Diff (11/20/16 23:59) Comprehensive Metabolic Panel (11/20/16:59) Gc And Chlamydia Pcr (11/20/16 23:59) Complete Rh (11/20/16 23:59) Wet Prep Profile (11/20/16 23:59) Urinalysis - C+S If Indicated (11/20/16:59) Iv Access Insert/Monitor (11/20/16:59) Ecg Monitoring (11/20/16:59) Sodium Chlor 0.9% 1000 Ml Inj (Ns 1000 M (11/20/16 23:59) Ed Poc Ultrasound (11/20/16:59) Ceftriaxone Inj (Rocephin Inj) (11/21/16 01:30) Azithromycin Powd Pack (Zithromax Powd P (11/21/16 01:30) Ondansetron Inj (Zofran Inj) (11/21/16 03:15) Labs Laboratory Tests Test 11/21/16 00:05 11/21/16 01:10 White Blood Count 10.8 TH/MM3 Red Blood Count 3.75 MIL/MM3 Hemoglobin 11.1 GM/DL Hematocrit 33.8 % Mean Corpuscular Volume 90.1 FL Mean Corpuscular Hemoglobin 29.6 PG Mean Corpuscular Hemoglobin Concent 32.8 % Red Cell Distribution Width 13.2 % Platelet Count 230 TH/MM3 Mean Platelet Volume 8.9 FL Neutrophils (%) (Auto) 69.1 % Lymphocytes (%) (Auto) 18.5 % Monocytes (%) (Auto) 9.2 % Eosinophils (%) (Auto) 3.1 % Basophils (%) (Auto) 0.1 % Neutrophils # (Auto) 7.5 TH/MM3 Lymphocytes # (Auto) 2.0 TH/MM3 Monocytes # (Auto) 1.0 TH/MM3 Eosinophils # (Auto) 0.3 TH/MM3 Basophils # (Auto) 0.0 TH/MM3 CBC Comment DIFF FINAL Differential Comment Urine Color YELLOW Urine Turbidity HAZY Urine pH 7.5 Urine Specific [place] 1.021 Urine Protein TRACE mg/dL Urine Glucose (UA) NEG mg/dL Urine Ketones NEG mg/dL Urine Occult Blood NEG Urine Nitrite NEG Urine Bilirubin NEG Urine Urobilinogen LESS THAN 2.0 MG/DL Urine Leukocyte Esterase LARGE Urine RBC 5 /hpf Urine WBC 5 /hpf Urine Squamous Epithelial Cells 2 /hpf Urine Calcium Oxalate Crystals OCC /hpf Urine Amorphous Sediment RARE Urine Mucus FEW /lpf Microscopic Urinalysis Comment CULT NOT INDICATED Blood Urea Nitrogen 5 MG/DL Creatinine 0.56 MG/DL Random Glucose 86 MG/DL Total Protein 6.9 GM/DL Albumin 3.1 GM/DL Calcium Level 8.4 MG/DL Alkaline Phosphatase 55 U/L Aspartate Amino Transf (AST/SGOT) 10 U/L Alanine Aminotransferase (ALT/SGPT) 17 U/L Total Bilirubin 0.4 MG/DL Sodium Level 138 MEQ/L Potassium Level 3.6 MEQ/L Chloride Level 107 MEQ/L Carbon Dioxide Level 23.7 MEQ/L Anion Gap 7 MEQ/L Estimat Glomerular Filtration Rate 161 ML/MIN Human Chorionic Gonadotropin, Quant 80839 MIU/ML Clue Cells (Wet Prep) NONE SEEN Vaginal Trichomonas (Wet Prep) NONE SEEN Vaginal Yeast (Wet Prep) PRESENT Chlamydia trachomatis DNA (PCR) NOT DETECTED Neisseria gonorrhoeae DNA (PCR) NOT DETECTED MDM Medical Decision Making Medical Screen Exam Complete: Yes Emergency Medical Condition: Yes Medical Record Reviewed: Yes Differential Diagnosis Gonorrhea, versus chlamydia, versus trichomoniasis, versus yeast vaginitis, versus bacterial vaginosis, versus urinary tract infection, versus threatened miscarriage Narrative Course During the course of the patients emergency department visit, the patients history, examination, and differential diagnosis were reviewed with the patient. The patient had [-] IV access obtained and blood work sent for analysis. The patient was initially provided normal saline 1 L IV fluid bolus. The patient was given Rocephin 1 g IV, Zithromax 1 g by mouth after a pelvic examination revealed a yellow discharge with cervical friability. The patients laboratory studies were reviewed and remarkable for wet prep is positive for yeast. CBC is remarkable for a hemoglobin of 11.1, CMP is remarkable for a BUN of 5, calcium 8.4, AST 10, quantitative beta hCG is 45,044 , urinalysis shows large leukocyte esterase 5 RBCs occasional calcium oxalate crystals, no bacteria. Culture not indicated. The patient's blood type is B+. A bedside ultrasound was done by me and confirmed heart activity, active fetus on examination. The patient will be discharged home with a prescription for Terazol. The patient is resting comfortably and feels better, is alert and in no distress. The patients results and examination findings were discussed with the patient. The repeat examination is unremarkable and benign. The history, exam, diagnostic testing, and current condition do not suggest any significant pathology to warrant further testing, continued ED treatment, admission, or surgical evaluation at this point. The vital signs have been stable. The patient does not have uncontrollable pain, intractable vomiting, or other significant symptoms. The patient's condition is stable and appropriate for discharge. The patient will pursue further outpatient evaluation with a primary care physician or other designated or consulting physician as indicated in the discharge instructions. The patient expressed understanding and was agreeable with this plan. Procedures Procedure Narrative Emergency Department Pelvic ultrasound was performed with patient consent. The curvilinear probe was used in the transverse and sagittal views within the suprapubic region revealing [-] intrauterine . heart rate was [- ]. See this measures [-] by [-]. 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 Med/Other Pt SpecificInfo: Prescription(s) given Scripts Terconazole Vaginal Cream (Terazol 7 Vaginal Cream) 0.4 % Cream 1 APPL VAGINAL HS for Fungal Infection for 7 Days, #45 GM 0 Refills 1 applicatorful intravaginally x 7 nights Prov: Sakina Renteria MD 11/21/16 Disposition: 01 DISCHARGE HOME Condition: Stable Sakina Renteria MD Nov 21, 2016 00:42
[2016-11-21 00:50] LABS: ALT (GPT) 17 U/L (10-53); ANION GAP 7 MEQ/L (5-15); AST (GOT) 10 U/L (15-37); BICARBONATE 23.7 MEQ/L (21.0-32.0); BLOOD UREA NITROGEN 5 MG/DL (7-18); CHLORIDE 107 MEQ/L (98-107); GLOMERULAR FILTRATION RATE 161 ML/MIN (>89); POTASSIUM 3.6 MEQ/L (3.5-5.1); SODIUM (NA) 138 MEQ/L (136-145)
[2016-11-21 01:07] LABS: ALKALINE PHOSPHATASE 55 U/L (45-117); BETA HCG QUANT 45044 MIU/ML (0-5); TOTAL BILIRUBIN ADULT 0.4 MG/DL (0.2-1.0)
[2016-11-21] MEDS ORDERED: AZITHROMYCIN PWD FOR SUSP 1 GM PACKET PO ONE (01:30)
[2016-11-21] MEDS ORDERED: cefTRIAXone INJ 1,000 MG in SODIUM CHLORIDE 0.9% INJ 100 ML IV ONE (01:30)
[2016-11-21] MEDS ORDERED: TERC.4%V VAGINAL (02:43)
[2016-11-21 03:07] LABS: CHLAMYDIA PCR NOT DETECTED (NOT DETECT); NEISSERIA PCR NOT DETECTED (NOT DETECT)
[2016-11-21 03:15] VITALS: BP 124/58; PULSE 86; RESP 18; TEMP 98; O2SAT 100
[2016-11-21] MEDS ORDERED: ONDANSETRON HCL 4 MG/2 ML VIAL IV ONE (03:15)
== END 2016-11-21 03:36 | disposition home or self-care (01) ==
LOC: NEPE 23:12
DX: O26.892 Other specified pregnancy related conditions, second trimester (principal); R10.9 Unspecified abdominal pain; B37.3 Candidiasis of vulva and vagina; N72 Inflammatory disease of cervix uteri
CPT/HCPCS: 80053; 81001; 84702; 85025; 86901; 87210; 87491; 87591; 96374; 96375; 99284; J0696; J2405; J7030

== ENCOUNTER 2016-12-25 13:56 | Observation (INO) | payer OTHER ==
[~2016-12-25] VITALS: Ht 170.2 cm; Wt 86.0 kg
[2016-12-25] VITALS (8 sets, daily range): BP systolic 123–132; BP diastolic 64–73; PULSE 17–103; RESP 16–20; TEMP 98–98.3
[~2016-12-25 13:56] MED LIST changes: -AMPI500C8 PO; -METR500T10 PO; +TERC.4%V VAGINAL; -TERC0.8C VAGINAL
--- NOTE | 2016-12-25 14:46 | PD ---
HPI Chief Complaint Vaginal bleeding, abdominal pain Date Seen: Dec 25, 2016 Time Seen: 14:30 Travel History International Travel<30 Days: No Contact w/Intl Traveler<30Days: No Known Affected Area: No History of Present Illness HPI Patient is a 26-year-old at 18 weeks and 5 days who presents with vaginal bleeding and abdominal pain. She reports that she was sleeping and woke up with contractions of her pelvic floor muscles. She then saw a quarter-sized stain of blood on her underwear. She then experienced low abdominal pain that she describes as bilateral suprapubic pain, crampy, aching, worse with movement, tender to palpation, no better with position changes. She took a Tylenol, which did not help. She has had a similar pain off and on throughout this , but this pain is much more intense. She presented to the emergency department about a month ago and was diagnosed with cervicitis and a yeast infection. History Past Medical History Narrative Medical She presented to the emergency department about a month ago and was diagnosed with cervicitis and a yeast infection. She was treated with Rocephin, azithromycin, Terazol. She was diagnosed with alpha thalassemia during this . Obstetric History Obstetric History Patient is a . Her last , she had an elective with [facility]. Past Surgical History Narrative Surgical Tooth removal Family History Narrative Family History Her mom has sickle cell trait. Social History Narrative Social History Patient lives on the [facility]. 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 Alcohol Use: No Tobacco Use: No Substance Abuse: No Allergies-Medications (Allergen,Severity, Reaction): Coded Allergies: No Known Allergies (Unverified Allergy, Unknown, 12/25/16) Home Meds Active Scripts Terconazole Vaginal Cream (Terazol 7 Vaginal Cream) 0.4 % Cream, 1 APPL VAGINAL HS for Fungal Infection for 7 Days, #45 GM 0 Refills 1 applicatorful intravaginally x 7 nights Prov:Sakina Renteria MD 11/21/16 Vit W/ Fe Fum-Iron Po (Concept Dha 53.5-38-1 mg) 35 Mg-1 Mg-200 Mg Cap , 1 CAPLET PO DAILY, #30 CAPLET 3 Refills Prov:Arleth Chu CNM [facility] 11/13/16 Review of Systems Except as stated in HPI: all other systems reviewed are Neg Physical Exam Narrative GENERAL: Well-nourished, well-developed patient. SKIN: Warm and dry. HEAD: Normocephalic and atraumatic. EYES: No scleral icterus. No injection or drainage. ENT: No nasal drainage noted. Mucous membranes pink. Airway patent. NECK: Supple, trachea midline. No JVD. CARDIOVASCULAR: Regular rate and rhythm without murmurs, gallops, or rubs. RESPIRATORY: Breath sounds equal bilaterally. No accessory muscle use. ABDOMEN/GI: Abdomen soft, non-tender, bowel sounds present, no rebound, no guarding Gravid to 18 weeks size GENITOURINARY: External Genitalia: intact and normal in appearance Cervix: [-] Dilatation: [-] Effacement: [-] Station: [-] Presentation: [-] Membranes: [intact or ruptured] Uterine Contractions: [-] FHR: 140s EXTREMITIES: No cyanosis or edema. BACK: Nontender without obvious deformity. No CVA tenderness. NEUROLOGICAL: Awake and alert. Motor and sensory grossly within normal limits. Five out of 5 muscle strength in all muscle groups. Normal speech. MDM Plan Patient is a 26-year-old at 18 weeks and 5 days who presents with vaginal bleeding and abdominal pain. She presented to the emergency department about a month ago and was diagnosed with cervicitis and a yeast infection. 1. vaginal bleeding and abdominal pain -sterile speculum exam showed irritated cervix with increased discharge; no blood. The following samples were collected and sent to lab: STEVE, wet prep, G/C , culture -bimanual exam showed closed, mildly indurated cervix -US to r/o placental abruption and obtain cervical length -urine dip with small leuk est -UA -Monitor vital signs -Monitor labor status/tocometry -Encourage by mouth hydration -Plan to place in observation for abdominal pain and short cervix s/d/w Dr. Lama Diagnosis Diagnosis: Primary Impression: Abdominal pain in Jeffery Xavier MD R2 Dec 25, 2016 14:45
[2016-12-25 16:09] LABS: BACTERIA, URINE OCC /hpf; BLOOD, URINE NEG (NEG); COMMENT (UR) CULTURE INDICATED; CULTURE IF INDICATED CULTURE INDICATED; GLUCOSE,URINE NEG (NEG); KETONE, URINE NEG (NEG); NITRITE,URINE NEG (NEG); PH, URINE 7.5 (5.0-8.5); SQUAMOUS EPITHELIAL CELL URINE 7 /hpf (0-5); URINE COLOR YELLOW (YELLW/STRAW)
[2016-12-25] MEDS ORDERED: ACETAMINOPHEN 325 MG TAB PO PRN (18:15)
[2016-12-25] MEDS ORDERED: SODIUM CHLORIDE 0.9% FLUSH 10 ML FLUSH IV FLUSH PRN (18:15)
[2016-12-25] MEDS ORDERED: ZOLPIDEM TARTRATE 5 MG TAB PO PRN (18:15)
[2016-12-25 19:21] LABS: CHLAMYDIA PCR NOT DETECTED (NOT DETECT); NEISSERIA PCR NOT DETECTED (NOT DETECT)
--- NOTE | 2016-12-25 19:45 | HHI.HP ---
HPI Chief Complaint Abdominal pain Travel History International Travel<30 Days: No Contact w/Intl Traveler<30Days: No Known Affected Area: No History of Present Illness HPI 26-year-old 010, IUP at 18.5 care complicated by cervicitis, EAB, alpha thalassemia The patient presents reporting abdominal pain that awoke her from sleep at approximately 3:57 AM. She reports that the abdominal pain is constant and cramping in nature and both lower quadrants. She attempted Tylenol without relief. She reports that she's its constant pain that is causing her to be unable to rest. There are no other aggravating or alleviating factors. She also reports that at the time she awoke she felt spontaneous contractions of her pelvic floor muscles she subsequently saw quarter-sized stain of blood on her underwear does not improve with position changes and is worse with pressing on her abdomen. She reports that she's had similar pains throughout the with this pain is much more intense. She denies any fever, chills, nausea vomiting. She denies leaking of fluid or any subsequent vaginal bleeding. She reports movement. Weeks Gestation: 18 Para: 2 : 0 History Past Medical History Narrative Medical Alpha thalassemia Obstetric History Obstetric History G2, P0 010 EAB 1 Past Surgical History Narrative Surgical EAB, tooth removal Family History Narrative Family History Sickle cell trait Social History Alcohol Use: No Tobacco Use: No Substance Abuse: No Allergies-Medications (Allergen,Severity, Reaction): Coded Allergies: No Known Allergies (Unverified Allergy, Unknown, 12/25/16) Home Meds Active Scripts Terconazole Vaginal Cream (Terazol 7 Vaginal Cream) 0.4 % Cream, 1 APPL VAGINAL HS for Fungal Infection for 7 Days, #45 GM 0 Refills 1 applicatorful intravaginally x 7 nights Prov:Sakina Renteria MD 11/21/16 Vit W/ Fe Fum-Iron Po (Concept Dha 53.5-38-1 mg) 35 Mg-1 Mg-200 Mg Cap , 1 CAPLET PO DAILY, #30 CAPLET 3 Refills Prov:Arleth Chu CNM [employer] 11/13/16 Review of Systems Except as stated in HPI: all other systems reviewed are Neg Gastrointestinal: Abdominal Pain Physical Exam Vital Signs Date Time Temp Pulse Resp B/P (MAP) Pulse Ox O2 Delivery O2 Flow Rate FiO2 12/25/16 18:00 20 12/25/16 17:56 76 132/64 (86) 12/25/16 15:00 98.0 17 12/25/16 15:00 17 Narrative GENERAL: Well-nourished, well-developed patient. SKIN: Warm and dry. HEAD: Normocephalic and atraumatic. EYES: No scleral icterus. No injection or drainage. ENT: No nasal drainage noted. Mucous membranes pink. Airway patent. NECK: Supple, trachea midline. No JVD. CARDIOVASCULAR: Regular rate and rhythm without murmurs, gallops, or rubs. RESPIRATORY: Breath sounds equal bilaterally. No accessory muscle use. BREASTS: Deferred ABDOMEN/GI: Abdomen soft, mildly tender to palpation, bowel sounds present, no rebound, no guarding GENITOURINARY: External Genitalia: intact and normal in appearance. Speculum exam revealed no evidence of vaginal bleeding however there was increased vaginal discharge and her cervix appeared irritated in nature. The cervical os was visually closed. There were grossly normal rugated, no cervical or vaginal masses were appreciated. SVE revealed cervix that was closed and approximately 50% effaced on digital exam. FHT's: 140s by Doppler EXTREMITIES: No cyanosis or edema. BACK: Nontender without obvious deformity. No CVA tenderness. NEUROLOGICAL: Awake and alert. Motor and sensory grossly within normal limits. Five out of 5 muscle strength in all muscle groups. Normal speech. Psychiatric: Grossly normal memory and affect Muscle skeletal: Grossly normal range of motion, gait, muscle strength Caprini VTE Risk Assessment Caprini VTE Risk Assessment: No/Low Risk (score <= 1) Caprini Risk Assessment Model Point Value = 1 Point Value = 2 Point Value = 3 Point Value = 5 Age 41-60 Minor surgery BMI > 25 kg/m2 Swollen legs Varicose veins or History of unexplained or recurrent spontaneous Oral contraceptives or hormone replacement Sepsis (< 1 month) Serious lung disease, including pneumonia (< 1 month) Abnormal pulmonary function Acute myocardial infarction Congestive heart failure (< 1 month) History of inflammatory bowel disease Medical patient at bed rest Age 61-74 Arthroscopic surgery Major open surgery (> 45 min) Laparoscopic surgery (> 45 min) Malignancy Confined to bed (> 72 hours) Immobilizing plaster cast Central venous access Age >= 75 History of VTE Family history of VTE Factor V Leiden Prothrombin [id number] Lupus anticoagulant Anticardiolipin antibodies Elevated serum homocysteine Heparin-induced thrombocytopenia Other congenital or acquired thrombophilia Stroke (< 1 month) Elective arthroplasty Hip, pelvis, or leg fracture Acute spinal cord injury (< 1 month) Prophylaxis Regimen Total Risk Factor Score Risk Level Prophylaxis Regimen 0-1 Low Early ambulation 2 Moderate Order ONE of the following: *Sequential Compression Device (SCD) *Heparin 5000 units SQ BID 3-4 Higher Order ONE of the following medications: *Heparin 5000 units SQ TID *Enoxaparin/Lovenox 40 mg SQ daily (WT < 150 kg, CrCl > 30 mL/min) *Enoxaparin/Lovenox 30 mg SQ daily (WT < 150 kg, CrCl > 10-29 mL/min) *Enoxaparin/Lovenox 30 mg SQ BID (WT < 150 kg, CrCl > 30 mL/min) AND/OR *Sequential Compression Device (SCD) 5 or more Highest Order ONE of the following medications: *Heparin 5000 units SQ TID (Preferred with Epidurals) *Enoxaparin/Lovenox 40 mg SQ daily (WT < 150 kg, CrCl > 30 mL/min) *Enoxaparin/Lovenox 30 mg SQ daily (WT < 150 kg, CrCl > 10-29 mL/min) *Enoxaparin/Lovenox 30 mg SQ BID (WT < 150 kg, CrCl > 30 mL/min) AND *Sequential Compression Device (SCD) Data Data Orders Orders Vital Signs (Adult) .ON ADMISSION (12/25/16 14:40) ^ Labor Status (12/25/16 14:40) Urinalysis - C+S If Indicated (12/25/16 14:40) ^ Hydration (12/25/16 14:40) Us Ob Pelvis >14wks Fetus W/Tv (12/25/16 15:10) Urine Culture (12/25/16 14:40) Wet Prep Profile (12/25/16 16:30) Oscar Prep (12/25/16 16:30) Fluid Culture And Gram Stain (12/25/16 16:30) Fluid Fungus Culture And Stain (12/25/16 16:30) Gc And Chlamydia Pcr (12/25/16 16:30) Ob (2e) Additional Admit Info (12/25/16 17:42) Place In Observation (12/25/16 ) Diet Regular Basic (12/25/16 Dinner) Vital Signs (Adult) [id number] AWAKE (12/25/16 18:15) Activity Oob Ad Su (12/25/16 18:15) Acetaminophen (Tylenol) (12/25/16 18:15) Sodium Chloride 0.9% Flush (Ns Flush) (12/25/16 21:00) Sodium Chloride 0.9% Flush (Ns Flush) (12/25/16 18:15) Zolpidem (Ambien) (12/25/16 18:15) Ondansetron Odt (Zofran Odt) (12/25/16 18:15) Ob/Psych Drug Screen, Urine (12/25/16 18:15) Labs Laboratory Tests Test 12/25/16 14:40 12/25/16 15:00 Urine Color YELLOW Urine Turbidity HAZY Urine pH 7.5 Urine Specific [place] 1.017 Urine Protein TRACE Urine Glucose (UA) NEG Urine Ketones NEG Urine Occult Blood NEG Urine Nitrite NEG Urine Bilirubin NEG Urine Urobilinogen LESS THAN 2.0 Urine Leukocyte Esterase LARGE Urine RBC 7 Urine WBC 17 Urine Squamous Epithelial Cells 7 Urine Bacteria OCC Microscopic Urinalysis Comment CULTURE INDICATED Clue Cells (Wet Prep) NS Vaginal Trichomonas (Wet Prep) PRESENT Vaginal Yeast (Wet Prep) NS Chlamydia trachomatis DNA (PCR) NOT DETECTED Neisseria gonorrhoeae DNA (PCR) NOT DETECTED Date/Time Source Procedure Growth Status 12/25/16 14:40 Urine Clean Catch Urine Culture Pending Received Assessment/Plan Assessment and Plan Assessment/plan: 26-year-old 010 1. IUP at 18 weeks and 5 days 2. Abdominal pain: Unclear etiology of abdominal pain, tocometry is not detecting any contractions. We will admit for 23 hour observations to further evaluate as the patient has abdominal pain requiring medication. I discussed discharge home versus observation with patient she is willing to stay for further observation and evaluation. We will check a CBC and CMP. I discussed with the patient the possibility of labor although her cervix is closed her cervical exam is borderline. I discussed that at this gestational age there are no indications or interventions to prevent or stop labor. We will observe for this overnight. No evidence of nausea vomiting or GI involvement at this time, but will monitor closely. 3. Borderline shortened cervix: We'll monitor overnight for contractions and cervical change. Consider repeat transvaginal ultrasound in a.m. to further assess cervical length with MFM consult if indicated. 4. well-being: FHT is appropriate for gestational age 5. Alpha thalassemia 6. ultrasound was performed to assess gestational age is a patient not yet had a dating ultrasound. The gestational age is consistent with her reported EDC. 7. Wet prep revealed Trichomonas: Patient was notified and will place on Flagyl 8. UA with only occasional bacteria but moderate leukocyte esterase, urine culture pending Vivien Lama MD Dec 25, 2016 19:45
[2016-12-25] MEDS ORDERED: LACTATED RINGER'S 1000 ML INJ 1,000 ML IV ONE (20:00)
[2016-12-25] MEDS ORDERED: oxyCODONE/ACETAMINOPHEN 5 MG/325 MG TAB PO PRN (20:00)
[2016-12-25] MEDS: metroNIDAZOLE 500 MG TAB PO SCH (21:00)
[2016-12-25] MEDS: oxyCODONE/ACETAMINOPHEN 5 MG/325 MG TAB PO PRN (21:27)
[2016-12-25 22:49] LABS: HEMATOCRIT 34.8 % (35.0-46.0); MEAN CELL VOLUME 91.8 FL (80.0-100.0); MEAN CORPUSCULAR HEMOGLOBIN 30.1 PG (27.0-34.0); MEAN CORPUSCULAR HGB CONC 32.8 % (32.0-36.0); PLATELET COUNT 226 TH/MM3 (150-450); REVIEW FLAG FINAL; WHITE BLOOD COUNT 13.8 TH/MM3 (4.0-11.0)
[2016-12-25 23:12] LABS: ANION GAP 7 MEQ/L (5-15); AST (GOT) 27 U/L (15-37); BICARBONATE 24.3 MEQ/L (21.0-32.0); BLOOD UREA NITROGEN 5 MG/DL (7-18); CHLORIDE 106 MEQ/L (98-107); GLOMERULAR FILTRATION RATE 140 ML/MIN (>89); POTASSIUM 3.8 MEQ/L (3.5-5.1); SODIUM (NA) 137 MEQ/L (136-145)
[2016-12-25 23:14] LABS: ALT (GPT) 32 U/L (10-53)
[2016-12-25 23:16] LABS: ALKALINE PHOSPHATASE 66 U/L (45-117); TOTAL BILIRUBIN ADULT 0.3 MG/DL (0.2-1.0)
[2016-12-26] MEDS: oxyCODONE/ACETAMINOPHEN 5 MG/325 MG TAB PO PRN ×2 (02:20→08:42)
[2016-12-26 02:45] VITALS: RESP 18
[2016-12-26 03:15] VITALS: RESP 18
[2016-12-26 03:43] VITALS: RESP 16
[2016-12-26 08:15] VITALS: RESP 16; TEMP 97.9
[2016-12-26 08:17] VITALS: BP 112/66; PULSE 82
[2016-12-26] MEDS: ONDANSETRON ODT 4 MG TAB PO PRN ×2 (08:42→12:02)
[2016-12-26] MEDS: metroNIDAZOLE 500 MG TAB PO SCH (08:42)
[2016-12-26] MEDS: SODIUM CHLORIDE 0.9% FLUSH 10 ML FLUSH IV FLUSH SCH ×2 (09:31→09:32)
[2016-12-26] MEDS ORDERED: ONDA4TAB7 PO (13:29)
[2016-12-26] MEDS ORDERED: METR-1 PO (13:29)
--- NOTE | 2016-12-26 13:32 | HHI.DCPOC ---
Discharge Care Plan Diagnosis: (1) Trichomoniasis (2) Short cervical length during Report Symptoms to Your Doctor -Temperature above 100.5 degrees -Redness, of incision or excessive or foul smelling drainage -Unusual pain or calf pain -Increased vaginal bleeding -Painful or difficulty urinating -Feelings of extreme sadness or anxiety after 2 weeks Goals to Promote Your Health * To prevent worsening of your condition and complications, please follow up with OB diagnostics within 2 weeks. Please call [phone] to make an appointment. * To maintain your health at the optimal level, please follow your doctors' recommendations. Directions to Meet Your Goals Take your medications as prescribed Follow your dietary instruction Follow activity as directed Ensure plenty of rest for recovery Drink fluids for hydration Keep your appointments as scheduled Take your immunizations and boosters as scheduled If your symptoms worsen call your PCP, if no PCP go to Urgent Care Center or Emergency Room Smoking is Dangerous to Your Health. Avoid second hand smoke Call the 24-hour crisis hotline for domestic abuse at Jeffery Xavier MD R2 Dec 26, 2016 13:32
[2017-01-01 10:17] LABS: BATH SALTS (MDPV) UR NEG (NEG); ECSTASY (MDMA) UR NEG (NEG); HEROIN (6-ACETYLMORPHINE) UR NEG (NEG); K2 SPICE UR NEG (NEG); OBGABAPENTIN UR NEG (NEG); OBHYDROMORPHONE U NEG (NEG); OBMETHADONE UR NEG (NEG); PHENCYCLIDINE URINE NEG (NEG)
== END 2016-12-26 13:56 | disposition home or self-care (01) ==
LOC: HOBED 13:56 → H2EA 17:43
PROVIDERS: ADMIT Obstetrics & Gynecology; ATTEND Obstetrics & Gynecology
DX: O26.892 Other specified pregnancy related conditions, second trimester (principal); R10.9 Unspecified abdominal pain; O46.92 Antepartum hemorrhage, unspecified, second trimester; O26.872 Cervical shortening, second trimester; D56.0 Alpha thalassemia; A59.9 Trichomoniasis, unspecified; O98.312 Other infections with a predominantly sexual mode of transmission complicating pregnancy, second trimester; O23.512 Infections of cervix in pregnancy, second trimester; Z3A.18 18 weeks gestation of pregnancy
CPT/HCPCS: 76805; 76815; 76817; 80053; 80307; 81001; 85027; 86403; 87070; 87086; 87102; 87186; 87210; 87491; 87591; 99285; G0378; G0481; J7120; 87205; 87206; 87220

== ENCOUNTER → 2017-01-08 | Outpatient (CLI) | payer OTHER ==
[~2017-01-08] MED LIST changes: +METR-1 PO; +ONDA4TAB7 PO
== END ==
LOC: HPND 08:44
PROVIDERS: ATTEND Obstetrics & Gynecology
DX: O26.872 Cervical shortening, second trimester (principal); O20.9 Hemorrhage in early pregnancy, unspecified
CPT/HCPCS: 76816; 76817

== ENCOUNTER → 2017-01-16 | Outpatient (CLI) | payer OTHER ==
[~2017-01-16] MED LIST changes: -METR-1 PO; -TERC.4%V VAGINAL
== END ==
LOC: HPND 08:27
PROVIDERS: ATTEND Obstetrics & Gynecology
DX: O26.872 Cervical shortening, second trimester (principal)
CPT/HCPCS: 76815; 76817

== ENCOUNTER → 2017-01-17 | Day surgery (SDC) | payer OTHER ==
[~2017-01-17] VITALS: Ht 170.2 cm; Wt 88.9 kg
[~2017-01-17] MED LIST changes: +CHLORHEXIDINE GLUCONATE 2 % 1 PACK (2 CLOTHS) TOPICAL PRN; +DO NOT ADM ANY ANTICOAGULANT DRUGS PRN; +LACTATED RINGER'S 1000 ML IV PRN; +METOPROLOL TARTRATE 25 MG TAB PO PRN; +ONDANSETRON HCL 4 MG/2 ML VIAL IV PUSH PRN; +PHENYLEPH/NS 1000 MCG/10 ML SYR IV ONE; +POVIDONE IODINE 5% (ANTISEPSIS KIT) 4 APPLICATIONS EACH NARE PRN; +SODIUM CHLORID 0.9% 500 ML IV PRN; +ceFAZolin 2 GM PREMIX 50 ML IV SCH; +ePHEDrine/NS 25 MG/5 ML SYR IV ONE
--- NOTE | 2017-01-17 13:30 | MP ---
cc: JACEK MCKEON MD DATE OF SURGERY 01/17/2017 PREOPERATIVE DIAGNOSIS Cervical incompetence. POSTOPERATIVE DIAGNOSIS Cervical incompetence. OPERATION Cervical cerclage SURGEON Jacek Mclean MD ANESTHESIA Spinal ESTIMATED BLOOD LOSS Minimal FINDINGS None [employer] None COMPLICATIONS None PROCEDURE The patient was prepped and draped in the dorsal lithotomy position. A weighted speculum was placed in the posterior vaginal vault. A #1 Prolene stitch was placed circumferentially around the cervix and then tied at the 12 o'clock position and then another #1 Prolene stitch was placed approximately a centimeter posterior to the outlined, also in a circumferential stitch and tied at the 12 o'clock position. After good hemostasis was noted, the speculum removed and the patient returned to the recovery room in stable condition. MD RICHARD Parrish/DJL /1:16 PM /1:19 PM
[2017-01-17 17:50] VITALS: BP 130/59; PULSE 109; RESP 16; TEMP 98.2; O2SAT 100
--- NOTE | 2017-01-18 08:10 | MH ---
cc: YESSICA MCKEON MD DATE OF ADMISSION 01/17/2017 REASON FOR ADMISSION The patient is a 26-year-old black female. She is 2 para 0. She is being admitted to [facility] for treatment of cervical incompetence. HISTORY OF PRESENT ILLNESS The patient is well-known to our practice. She has been seen throughout her since the 11th week. She had on ultrasound findings a short cervix, of approximately 25-27 mm on 12/25. This was again repeated and the cervix was at that time on 01/08, 20 mm. Because of this she is also seen by maternal medicine who consulted with me and advised to proceed with selective cervical cerclage because of the cervical incompetence. The risks of the procedure were discussed at length with the patient. 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 Heme type data is B positive. Genetics screen was negative. The patient also was found to be a carrier of thalassemia. The surgical history was negative. REVIEW OF SYSTEMS Also negative. PHYSICAL EXAMINATION GENERAL: The patient is seen well-developed, well-nourished in no acute distress. VITAL SIGNS: Blood pressure is 141/66, pulse 70, respirations are 12. Weight was 194. HEENT was negative. CHEST: Clear to auscultation. CARDIOVASCULAR: Revealed a regular rate. ABDOMEN: Revealed a fundal height at 21 weeks. heart rate was 134. PELVIC: Exam revealed a soft and effaced cervix. EXTREMITIES: Revealed no clubbing, cyanosis or edema. NEUROPSYCHIATRIC: The patient was oriented times three and showed no gross neural cranial deficit. IMPRESSION On admission was cervical incompetence. PLAN The plan was to proceed with cervical cerclage. MD RICHARD Parrish/JIGAR /3:14 PM /8:06 AM
== END | disposition home or self-care (01) ==
LOC: HSDC 08:55
PROVIDERS: ATTEND Obstetrics & Gynecology
DX: O34.32 Maternal care for cervical incompetence, second trimester (principal); O26.872 Cervical shortening, second trimester; D56.9 Thalassemia, unspecified; Z3A.21 21 weeks gestation of pregnancy
CPT/HCPCS: 00948; 59320; J0690; J2370; J3010; J7120

== ENCOUNTER → 2017-01-22 | Outpatient (CLI) | payer OTHER ==
[~2017-01-22] MED LIST changes: -CHLORHEXIDINE GLUCONATE 2 % 1 PACK (2 CLOTHS) TOPICAL PRN; -DO NOT ADM ANY ANTICOAGULANT DRUGS PRN; -LACTATED RINGER'S 1000 ML IV PRN; -METOPROLOL TARTRATE 25 MG TAB PO PRN; -ONDA4TAB7 PO; -ONDANSETRON HCL 4 MG/2 ML VIAL IV PUSH PRN; -PHENYLEPH/NS 1000 MCG/10 ML SYR IV ONE; -POVIDONE IODINE 5% (ANTISEPSIS KIT) 4 APPLICATIONS EACH NARE PRN; -SODIUM CHLORID 0.9% 500 ML IV PRN; -ceFAZolin 2 GM PREMIX 50 ML IV SCH; -ePHEDrine/NS 25 MG/5 ML SYR IV ONE
== END ==
LOC: HPND 12:46
PROVIDERS: ATTEND Obstetrics & Gynecology
DX: O34.32 Maternal care for cervical incompetence, second trimester (principal)
CPT/HCPCS: 76815; 76817

== ENCOUNTER → 2017-01-29 | Outpatient (CLI) | payer OTHER | LOC: HPND 13:02 | PROVIDERS: ATTEND Obstetrics & Gynecology | DX: O34.33 Maternal care for cervical incompetence, third trimester (principal); O35.1XX0 Maternal care for (suspected) chromosomal abnormality in fetus, not applicable or unspecified | CPT/HCPCS: 76815; 76817 ==

== ENCOUNTER → 2017-02-12 | Outpatient (CLI) | payer OTHER | LOC: HPND 13:00 | PROVIDERS: ATTEND Obstetrics & Gynecology | DX: O34.32 Maternal care for cervical incompetence, second trimester (principal) | CPT/HCPCS: 76816; 76817 ==

== ENCOUNTER → 2017-02-26 | Outpatient (CLI) | payer OTHER | LOC: HPND 13:08 | PROVIDERS: ATTEND Obstetrics & Gynecology | DX: O26.872 Cervical shortening, second trimester (principal); O34.32 Maternal care for cervical incompetence, second trimester | CPT/HCPCS: 76815; 76817 ==

== ENCOUNTER → 2017-03-12 | Outpatient (CLI) | payer OTHER | LOC: HPND 12:39 | PROVIDERS: ATTEND Obstetrics & Gynecology | DX: O34.32 Maternal care for cervical incompetence, second trimester (principal) | CPT/HCPCS: 76816 ==

== ENCOUNTER 2017-05-03 23:21 | Emergency (ER) | payer OTHER ==
[2017-05-04 00:18] LABS: BACTERIA, URINE OCC /hpf; BILIRUBIN, URINE NEG (NEG); BLOOD, URINE SMALL (NEG); GLUCOSE,URINE NEG (NEG); KETONE, URINE NEG (NEG); MUCUS URINE FEW /lpf (OCC); NITRITE,URINE NEG (NEG); PH, URINE 6.5 (5.0-8.5); SQUAMOUS EPITHELIAL CELL URINE 11 /hpf (0-5); URINE COLOR YELLOW (YELLW/STRAW); URINE LEUKOCYTE ESTERASE LARGE (NEG); WHITE BLOOD CELL CLUMPS FEW
--- NOTE | 2017-05-04 00:54 | PD ---
HPI Chief Complaint lower abdominal pain Travel History International Travel<30 Days: No Contact w/Intl Traveler<30Days: No Known Affected Area: No History of Present Illness HPI 27-year-old 010, IUP at 37.2 care complicated by cerclage for shortened cervix, obesity The patient presents complaining of lower abdominal pain that has happened over the several past several days however increased yesterday. She reports a constant pressure and cramping sensation. There are no aggravating or alleviating factors and no attempted treatments. Patient denies any leaking of fluid or vaginal bleeding. The patient reports good movement. The she denies any painful or regular contractions. She denies any fevers, chills, nausea, vomiting, or any urinary complaints. Weeks Gestation: 37 Para: 0 : 2 Miscarriage: 0 : 1 History Past Medical History Narrative Medical Obesity Obstetric History Obstetric History 010 EAB 1 Past Surgical History Narrative Surgical Cervical cerclage Family History Family History: Negative Social History Alcohol Use: No Tobacco Use: No Substance Abuse: No Allergies-Medications (Allergen,Severity, Reaction): Coded Allergies: No Known Allergies (Unverified Allergy, Unknown, 05/04/17) Home Meds Active Scripts Vit W/ Fe Fum-Iron Po (Concept Dha 53.5-38-1 mg) 35 Mg-1 Mg-200 Mg Cap , 1 CAPLET PO DAILY, #30 CAPLET 3 Refills Prov:Arleth Chu CNM [facility] 11/13/16 Review of Systems Except as stated in HPI: all other systems reviewed are Neg Physical Exam Narrative GENERAL: Well-nourished, well-developed patient. SKIN: Warm and dry. HEAD: Normocephalic and atraumatic. EYES: No scleral icterus. No injection or drainage. ENT: No nasal drainage noted. Mucous membranes pink. Airway patent. NECK: Supple, trachea midline. No JVD. CARDIOVASCULAR: Regular rate and rhythm without murmurs, gallops, or rubs. RESPIRATORY: Breath sounds equal bilaterally. No accessory muscle use. BREASTS: Deferred ABDOMEN/GI: Abdomen soft, non-tender, bowel sounds present, no rebound, no guarding Gravid GENITOURINARY: External Genitalia: intact and normal in appearance. Normal BUS. No cervical or vaginal masses noted. Physiologic discharge. Grossly normal rugae. SVE 1/80/-2, unchanged over evaluation process. FHT's: heart tones with baseline of 110s with moderate long-term variability, good accelerations, no decelerations noted. This is a reactive NST and category 1 heart rate tracing EXTREMITIES: No cyanosis or edema. BACK: Nontender without obvious deformity. No CVA tenderness. NEUROLOGICAL/musculoskeletal: Awake and alert. Motor and sensory grossly within normal limits. Grossly normal Five out of 5 muscle strength in all muscle groups. Normal speech. Grossly normal range of motion, gait Psychiatric: Grossly normal memory and affect Data Data Orders Orders Urinalysis - C+S If Indicated (05/03/17 23:56) Urine Culture (05/03/17 23:40) Labs Laboratory Tests Test 05/03/17 23:40 Urine Color YELLOW Urine Turbidity HAZY Urine pH 6.5 Urine Specific [place] 1.017 Urine Protein TRACE Urine Glucose (UA) NEG Urine Ketones NEG Urine Occult Blood SMALL Urine Nitrite NEG Urine Bilirubin NEG Urine Urobilinogen 2.0 Urine Leukocyte Esterase LARGE Urine RBC 168 Urine WBC Urine WBC Clumps FEW Urine Squamous Epithelial Cells 11 Urine Bacteria OCC Urine Mucus FEW Microscopic Urinalysis Comment CULTURE INDICATED Date/Time Source Procedure Growth Status 05/03/17 23:40 Urine Clean Catch Urine Culture Pending Received MDM Plan Assessment/plan: 1. IUP at 37.2 2. Lower abdominal pain: Urinalysis highly suggestive of urinary tract infection. No evidence of pyelonephritis, strict pyelonephritis precautions We' ll avoid SMZ/TMP and Macrobid as patient is at term. Rx Keflex 500 mg by mouth every 6 hours 7 days. Her first dose was administered prior to discharge. Patient to follow up on results of urine culture with her primary OB in 2 days 3. No evidence of labor: Strict labor precautions, unchanged cervical exam over observation and evaluation. 4. well-being: Reassuring testing with reactive NST and category 1 heart rate tracing. kick counts daily. FHR reassuring and appropriate for gestational age 5. Obesity 6. Shortened cervix during status post cerclage with removal 7. Follow up with primary OB in 2 days or sooner if needed Diagnosis Diagnosis: Primary Impression: 37 weeks gestation of Additional Impression: UTI (urinary tract infection) in in third trimester Disposition: 01 DISCHARGE HOME Condition: Good Patient Instructions: General Instructions, Having Your Baby: The Labor Process (GEN), Movement (ED), Abdominal Pain in (ED) Additional Instructions: DRINK PLENTY OF WATER DURING THE DAY, RETURN IF LEAKING FLUID, VAGINAL BLEEDING , STRONG CONTRACTIONS OR DECREASE IN MOVEMENT. FOLLOW UP WITH YOUR OB DR IN AM AND KEEP ALL UPCOMING OB APPTS. Departure Forms: Tests/Procedures Vivien Lama MD May 04, 2017 00:54
[2017-05-04] MEDS ORDERED: CEPHALEXIN MONOHYDRATE 500 MG CAP PO ONE (01:00)
== END 2017-05-04 01:21 | disposition home or self-care (01) ==
LOC: HOBED 23:21
DX: O23.43 Unspecified infection of urinary tract in pregnancy, third trimester (principal); O99.213 Obesity complicating pregnancy, third trimester; Z3A.37 37 weeks gestation of pregnancy
CPT/HCPCS: 81001; 87086; 99283

== ENCOUNTER 2017-05-18 17:12 | Emergency (ER) | payer OTHER ==
--- NOTE | 2017-05-18 18:34 | PD ---
HPI Chief Complaint abdominal pain and decreased movement. Date Seen: May 18, 2017 Time Seen: 18:27 Travel History International Travel<30 Days: No Contact w/Intl Traveler<30Days: No Known Affected Area: No History of Present Illness HPI pt. is a 27 y/o @ 39 2/7 weeks present w/ decreased movement and abdominal pain. pt. states has had minimal movement today. pt. states had cerclage removed 2 weeks ago and been having intermittent abdominal pain that has increased in freq and intensity thruout the day. on exam pt. /high/ post. Weeks Gestation: 39 Para: 0 : 2 History Past Medical History Medical History: Denies Significant Hx Obstetric History Obstetric History , h/o sab and incompetent cervix. pt. have cerclage this . Past Surgical History Surgical History: Unable to Obtain Family History Family History: Negative Social History Alcohol Use: No Tobacco Use: No Substance Abuse: No Allergies-Medications (Allergen,Severity, Reaction): Coded Allergies: No Known Allergies (Unverified Allergy, Unknown, 05/04/17) Home Meds Active Scripts Vit W/ Fe Fum-Iron Po (Concept Dha 53.5-38-1 mg) 35 Mg-1 Mg-200 Mg Cap , 1 CAPLET PO DAILY, #30 CAPLET 3 Refills Prov:Arleth Chu CNM [facility] 11/13/16 Review of Systems Except as stated in HPI: all other systems reviewed are Neg Physical Exam Narrative GENERAL: Well-nourished, well-developed patient. SKIN: Warm and dry. HEAD: Normocephalic and atraumatic. EYES: No scleral icterus. No injection or drainage. ENT: No nasal drainage noted. Mucous membranes pink. Airway patent. NECK: Supple, trachea midline. No JVD. CARDIOVASCULAR: Regular rate and rhythm without murmurs, gallops, or rubs. RESPIRATORY: Breath sounds equal bilaterally. No accessory muscle use. ABDOMEN/GI: Abdomen soft, non-tender, bowel sounds present, no rebound, no guarding Gravid GENITOURINARY: External Genitalia: intact and normal in appearance Dilatation: 1 Effacement: 80 Station: high Membranes: intact Uterine Contractions: irreg FHT's: Category: 1 Reactive: + Variability:mod EXTREMITIES: No cyanosis or edema. BACK: Nontender without obvious deformity. No CVA tenderness. NEUROLOGICAL: Awake and alert. Motor and sensory grossly within normal limits. Five out of 5 muscle strength in all muscle groups. Normal speech. Data Data Vital Signs Reviewed: Yes [facility] Medical Record Reviewed: Yes Plan pt. hydrated and not in active labor. fht reassuring. condition d/w pt. pt. to be d/c to home. pt. given precautions for return. all ? answered. f/u as sched. Diagnosis Diagnosis: Primary Impression: False labor after 37 completed weeks of gestation Additional Impressions: Decreased movement 39 weeks gestation of Disposition: DISCHARGE HOME Jd Melgar Jr., MD May 18, 2017 18:34
== END 2017-05-18 19:58 | disposition home or self-care (01) ==
LOC: HOBED 17:12
DX: O47.1 False labor at or after 37 completed weeks of gestation (principal); O36.8130 Decreased fetal movements, third trimester, not applicable or unspecified; Z3A.39 39 weeks gestation of pregnancy
CPT/HCPCS: 59025

== ENCOUNTER 2017-05-29 11:54 | Inpatient (IN) | payer OTHER ==
[~2017-05-29] VITALS: Ht 170.2 cm; Wt 99.8 kg
[2017-05-29] VITALS (102 sets, daily range): BP systolic 80–156; BP diastolic 42–111; PULSE 65–190; RESP 16–20; TEMP 97.3–98.5; O2SAT 97–100
[2017-05-29] MEDS ORDERED: LACTATED RINGER'S 1000 ML INJ 1,000 ML IV PRN (12:12)
[2017-05-29] MEDS ORDERED: OXYTOCIN 30 UNITS-500ML PREMIX 500 ML IV ONE (12:15)
[2017-05-29] MEDS ORDERED: LIDOCAINE HCL 1% 50 ML VIAL INFIL PRN (12:15)
[2017-05-29] MEDS ORDERED: LIDOCAINE HCL 1% 50 ML VIAL I-DERMAL PRN (12:15)
[2017-05-29] MEDS ORDERED: CITRIC ACID-SODIUM CITRATE LIQ 30 ML UDC PO SCH (12:15)
[2017-05-29] MEDS ORDERED: MINERAL OIL 10 ML VIAL TOPICAL PRN (12:15)
[2017-05-29] MEDS ORDERED: SODIUM CHLORID 0.9% 500 ML INJ 500 ML IV PRN (12:15)
--- NOTE | 2017-05-29 12:21 | HHI.HP ---
HPI Chief Complaint Labor Date Seen: May 29, 2017 Time Seen: 12:11 Travel History International Travel<30 Days: No Contact w/Intl Traveler<30Days: No History of Present Illness HPI 27 year old female female presenting with at 40 and 6/7 weeks gestation in labor. Cervix was 4cm at [facility] today. complicated by cerclage placement at 12 weeks, removed at 36 weeks gestation. labs showing alpha thalassemia trait, Joey antibody, cervical incompetence She denies leakage of fluid, vaginal bleeding, and contractions. She feels baby moving regularly. She denies DEJESUS/N/V/D/fever/sick contacts/SOB/calf pain/ dizziness/seeing spots. Weeks Gestation: 40 Para: 0 : 2 Miscarriage: 0 : 1 History Past Medical History Narrative Medical alpha thal trait Joey antibody Medical History: Denies Significant Hx Obstetric History Obstetric History Cerclage placed at 12 weeks gestation, removed at 36 weeks History of , denying hx of cervical surgery Past Surgical History Narrative Surgical Cerclage Family History Family History: Negative Social History Alcohol Use: No Tobacco Use: No Substance Abuse: No Allergies-Medications (Allergen,Severity, Reaction): Coded Allergies: No Known Allergies (Unverified Allergy, Unknown, 05/04/17) Home Meds Active Scripts Vit W/ Fe Fum-Iron Po (Concept Dha 53.5-38-1 mg) 35 Mg-1 Mg-200 Mg Cap , 1 CAPLET PO DAILY, #30 CAPLET 3 Refills Prov:Arleth Chu CNM [facility] 11/13/16 Review of Systems General / Constitutional: No: Fever, Chills Eyes: No: Diploplia, Blurred Vision HENT: No: Headaches, Vertigo Cardiovascular: No: Chest Pain or Discomfort, Palpitations Respiratory: No: Cough, Short of Breath Gastrointestinal: Abdominal Pain, No: Nausea, Vomiting, Diarrhea Genitourinary: No: Urgency, Dysuria Musculoskeletal: No: Limited ROM, Weakness Skin: No Rash, No Itching Neurologic: No: Weakness, Syncope Psychiatric: No: Anxiety, Depression Physical Exam Narrative GENERAL: Well-nourished, well-developed patient. SKIN: Warm and dry. HEAD: Normocephalic and atraumatic. EYES: No scleral icterus. No injection or drainage. ENT: No nasal drainage noted. Mucous membranes pink. Airway patent. NECK: Supple, trachea midline. No JVD. CARDIOVASCULAR: Regular rate and rhythm without murmurs, gallops, or rubs. RESPIRATORY: Breath sounds equal bilaterally. No accessory muscle use. ABDOMEN/GI: Abdomen soft, non-tender, bowel sounds present, no rebound, no guarding. Gravid to 40 weeks. GENITOURINARY: External Genitalia: intact and normal in appearance Cervix: 4/90/-1/soft/posterior Membranes: intact Uterine Contractions: every 4 min FHT's: Category: 1 Baseline: 140s Reactive: n Variability: mod Decels: absent EXTREMITIES: No cyanosis or edema. BACK: Nontender without obvious deformity. No CVA tenderness. NEUROLOGICAL: Awake and alert. Motor and sensory grossly within normal limits. Five out of 5 muscle strength in all muscle groups. Normal speech. Caprini VTE Risk Assessment Caprini VTE Risk Assessment: Mod/High Risk (score >= 2) Caprini Risk Assessment Model Point Value = 1 Point Value = 2 Point Value = 3 Point Value = 5 Age 41-60 Minor surgery BMI > 25 kg/m2 Swollen legs Varicose veins or History of unexplained or recurrent spontaneous Oral contraceptives or hormone replacement Sepsis (< 1 month) Serious lung disease, including pneumonia (< 1 month) Abnormal pulmonary function Acute myocardial infarction Congestive heart failure (< 1 month) History of inflammatory bowel disease Medical patient at bed rest Age 61-74 Arthroscopic surgery Major open surgery (> 45 min) Laparoscopic surgery (> 45 min) Malignancy Confined to bed (> 72 hours) Immobilizing plaster cast Central venous access Age >= 75 History of VTE Family history of VTE Factor V Leiden Prothrombin [id number] Lupus anticoagulant Anticardiolipin antibodies Elevated serum homocysteine Heparin-induced thrombocytopenia Other congenital or acquired thrombophilia Stroke (< 1 month) Elective arthroplasty Hip, pelvis, or leg fracture Acute spinal cord injury (< 1 month) Prophylaxis Regimen Total Risk Factor Score Risk Level Prophylaxis Regimen 0-1 Low Early ambulation 2 Moderate Order ONE of the following: *Sequential Compression Device (SCD) *Heparin 5000 units SQ BID 3-4 Higher Order ONE of the following medications: *Heparin 5000 units SQ TID *Enoxaparin/Lovenox 40 mg SQ daily (WT < 150 kg, CrCl > 30 mL/min) *Enoxaparin/Lovenox 30 mg SQ daily (WT < 150 kg, CrCl > 10-29 mL/min) *Enoxaparin/Lovenox 30 mg SQ BID (WT < 150 kg, CrCl > 30 mL/min) AND/OR *Sequential Compression Device (SCD) 5 or more Highest Order ONE of the following medications: *Heparin 5000 units SQ TID (Preferred with Epidurals) *Enoxaparin/Lovenox 40 mg SQ daily (WT < 150 kg, CrCl > 30 mL/min) *Enoxaparin/Lovenox 30 mg SQ daily (WT < 150 kg, CrCl > 10-29 mL/min) *Enoxaparin/Lovenox 30 mg SQ BID (WT < 150 kg, CrCl > 30 mL/min) AND *Sequential Compression Device (SCD) Data Data Vital Signs Reviewed: Yes Group B Strep: Positive Assessment/Plan Assessment and Plan 27 year old female presenting from [facility] in labor. Intrauterine : Category 1 tracing Expect vaginal delivery Cervix 490/-1 Intact membranes Will obtain CBC, T&S, UA, UDS per protocol IV fluids Monitor heart tones Routine care GBS positive - PCN G per protocol SDW Dr. Rizwan Awan,Ivania Qureshi MD R2 May 29, 2017 12:21
[2017-05-29] MEDS ORDERED: SODIUM CHLOR 0.9% 1000 ML INJ 1,000 ML IV PRN (12:32)
[2017-05-29] MEDS ORDERED: PENICILLIN G POTASSIUM INJ 5,000,000 UNITS in SODIUM CHLORIDE 0.9% INJ 100 ML IV ONE (13:00)
[2017-05-29] MEDS: LACTATED RINGER'S 1000 ML INJ 1,000 ML IV SCH ×2 (13:10→18:18)
[2017-05-29 13:15] LABS: AUTOMATED NEUTROPHIL # 6.7 TH/MM3 (1.8-7.7); BASOPHIL % 0.2 % (0.0-2.0); EOSINOPHIL # 0.1 TH/MM3 (0-0.4); EOSINOPHIL % 1.4 % (0.0-4.0); HEMATOCRIT 36.5 % (35.0-46.0); HEMOGLOBIN 12.1 GM/DL (11.6-15.3); LYMPH % 15.3 % (9.0-44.0); LYMPHOCYTE # 1.4 TH/MM3 (1.0-4.8); MEAN CORPUSCULAR HEMOGLOBIN 30.4 PG (27.0-34.0); MEAN CORPUSCULAR HGB CONC 33.1 % (32.0-36.0); MEAN PLATELET VOLUME 11.2 FL (7.0-11.0); MONOCYTE # 1.1 TH/MM3 (0-0.9); NEUT % 71.1 % (16.0-70.0); PLATELET COUNT 180 TH/MM3 (150-450); RED BLOOD COUNT 3.97 MIL/MM3 (4.00-5.30); RED CELL DISTRIBUTION WIDTH 13.3 % (11.6-17.2); WHITE BLOOD COUNT 9.4 TH/MM3 (4.0-11.0)
[2017-05-29] MEDS ORDERED: fentaNYL 2MCG-BUPIV 0.125% INJ 100 ML ONE (13:25)
[2017-05-29 13:43] LABS: BACTERIA, URINE OCC /hpf; BILIRUBIN, URINE NEG (NEG); BLOOD, URINE LARGE (NEG); GLUCOSE,URINE NEG (NEG); KETONE, URINE NEG (NEG); MUCUS URINE MOD /lpf (OCC); NITRITE,URINE NEG (NEG); PH, URINE 6.5 (5.0-8.5); SQUAMOUS EPITHELIAL CELL URINE 16 /hpf (0-5); URINE COLOR YELLOW (YELLW/STRAW); URINE LEUKOCYTE ESTERASE LARGE (NEG); WHITE BLOOD CELL CLUMPS MANY
[2017-05-29] MEDS ORDERED: LIDOCAINE HCL 1% PF 30 ML VIAL ONE (13:46)
--- NOTE | 2017-05-29 14:34 | PD.LABORPN ---
Subjective Subjective Patient has epidural in place, no complaints Objective Vital Signs Vital Signs Date Time Temp Pulse Resp B/P (MAP) Pulse Ox O2 Delivery O2 Flow Rate FiO2 05/29/17 14:15 77 131/77 (95) 05/29/17 14:11 87 121/82 (95) 05/29/17 14:10 83 100 05/29/17 14:05 87 05/29/17 14:05 85 131/70 (90) 100 05/29/17 14:00 88 05/29/17 14:00 85 127/74 (91) 99 05/29/17 13:59 87 129/66 (87) 05/29/17 13:55 99 133/111 (118) 100 05/29/17 13:53 105 132/83 (99) 05/29/17 12:29 97.8 20 05/29/17 12:20 98 119/88 (98) Objective Pelvic Exam: Cervix: 5/100/-1 Presentation: vertex Membranes: AROM this exam, light meconium Uterine Contractions: CTX difficult to discern, IUPC placed FHT's: Category: 1 Baseline: 130s Reactive: 160s Variability: mod Decels: absent Weeks Gestation: 40 Assessment/Plan Assessment and Plan female presenting with at 40 and 6/7 weeks gestation in late latent stage of labor. Epidural in place AROM with light meconium IUPC placed Will augment labor with Pitocin in 1-2 hr if CTX not adequate SDW Ivania White MD R2 May 29, 2017 14:34
[2017-05-29] MEDS ORDERED: OXYTOCIN 30 UNITS-500ML PREMIX 500 ML IV PRN (15:45)
[2017-05-29] MEDS ORDERED: MEASLES, MUMPS, RUBELLA VACCINE 0.5 ML VIAL SQ ONE (16:00)
[2017-05-29] MEDS: PENICILLIN G POTASSIUM INJ 2,500,000 UNITS in SODIUM CHLORIDE 0.9% INJ 100 ML IV SCH ×2 (18:17→21:00)
--- NOTE | 2017-05-29 20:44 | PD.OB.DELI ---
Weeks gestation: 40 Anesthesia: None Episiotomy: None Vaginal Delivery: Normal Presentation: Occiput anterior Nuchal Cord: None Delayed cord clamping (45 sec): No (Due to no response to stimulation ) Infant: Male Delivery date: May 29, 2017 Delivery time: 20:14 One Minute : 8 Five Minute : 9 Weight: 3690g Placenta: Spontaneous delivery Laceration: 1 deg (2 first degrees lacerations repaired with interrupted chromic suture ) Repair: Chromic interrupted Estimated blood loss: <200cc Additional Information Ms. Hilliard is a 27 y/o G2 now P1 after an uncomplicated . Delivery completed under epidural anesthesia. Delayed cord clamping deferred as baby did not respond initially to stimulation, however APGARs were 8/9. Two primary vaginal lacerations repaired with interrupted chromic sutures. Mother and baby currently resting comfortably in room without complaints. SDW: Juan Antonio Loredo MD R2 May 29, 2017 20:44
[2017-05-29] MEDS ORDERED: ZOLPIDEM TARTRATE 5 MG TAB PO PRN (20:45)
[2017-05-29] MEDS ORDERED: DOCUSATE SODIUM 50 MG/SENNA 8.6 MG TAB PO PRN (20:45)
[2017-05-29] MEDS ORDERED: BENZOCAINE 20% TOPICAL SPRAY 60 ML CAN TOPICAL PRN (20:45)
[2017-05-29] MEDS ORDERED: SODIUM CHLORIDE 0.9% FLUSH 10 ML FLUSH IV FLUSH PRN (20:45)
[2017-05-29] MEDS ORDERED: ALUMINUM/MAGNESIUM/SIMETH 30 ML CUP PO PRN (20:45)
[2017-05-29] MEDS ORDERED: ACETAMINOPHEN 325 MG TAB PO PRN (20:45)
[2017-05-29] MEDS ORDERED: OXYTOCIN 30 UNITS-500ML PREMIX 500 ML IV SCH (20:45)
[2017-05-29] MEDS ORDERED: WITCH HAZEL 50%/GLYCERIN 12.5% 40 PAD JAR TOPICAL PRN (20:45)
[2017-05-29] MEDS ORDERED: ONDANSETRON ODT 4 MG TAB PO PRN (20:45)
[2017-05-29] MEDS ORDERED: SODIUM CHLORIDE 0.9% FLUSH 10 ML FLUSH IV FLUSH SCH (21:00)
[2017-05-30] MEDS: PENICILLIN G POTASSIUM INJ 2,500,000 UNITS in SODIUM CHLORIDE 0.9% INJ 100 ML IV SCH ×2 (01:00→04:10)
[2017-05-30] MEDS: IBUPROFEN 800 MG TAB PO PRN ×2 (08:02→23:32)
--- NOTE | 2017-05-30 08:35 | HHI.OB ---
Subjective Post Day: 1 Remarks day # 1. AFVSS overnight. Decreased lochia. Denies dysuria. No breast tenderness. She is feeding the baby via breast. Appetite good. No nausea or vomiting. Ambulating well. Denies calf pain or shortness of breath. Otherwise, she is doing well this morning and has no other concerns. Objective Vitals/I&O Vital Signs Date Time Temp Pulse Resp B/P (MAP) Pulse Ox O2 Delivery O2 Flow Rate FiO2 05/29/17 22:52 98.2 87 18 127/82 (97) 05/29/17 21:30 16 05/29/17 21:16 82 144/81 (102) 05/29/17 21:15 16 05/29/17 21:01 82 148/101 (117) 05/29/17 21:00 16 05/29/17 20:46 190 132/97 (109) 05/29/17 20:43 16 05/29/17 20:31 86 137/84 (101) 05/29/17 20:31 86 137/84 (101) 05/29/17 20:30 98.5 16 18 20:23 92 119/52 (74) 18 20:00 16 18 19:55 91 18 19:50 92 18 19:46 77 144/90 (108) 18 19:45 81 18 19:40 74 18 19:35 88 18 19:32 79 117/66 (83) 18 19:30 16 18 19:25 78 18 19:20 78 1818 19:16 73 128/72 (90) 18 19:15 78 18 19:10 83 1818 19:05 77 18 19:00 76 132/68 (89) 18 19:00 16 18 19:00 87 18 18:55 77 18 18:54 82 118/76 (90) 05/29/17 18:50 72 18 18:46 88 80/42 (55) 4/18/18 18:45 90 4/18/18 18:05 78 100 4/18/18 18:01 69 136/97 (110) 4/18/18 18:00 97.3 20 4/18/18 18:00 71 98 4/18/18 17:55 81 99 4/18/18 17:50 80 100 4/18/18 17:45 74 4/18/18 17:45 81 131/87 (102) 100 4/18/18 17:40 79 100 4/18/18 17:35 72 100 4/18/18 17:31 84 132/76 (94) 4/18/18 17:30 70 98 4/18/18 17:25 70 100 4/18/18 17:20 68 100 4/18/18 17:15 69 142/84 (103) 4/18/18 17:10 83 4/18/18 17:05 65 4/18/18 17:00 68 127/84 (98) 4/18/18 17:00 74 4/18/18 16:55 65 100 4/18/18 16:50 74 100 4/18/18 16:46 85 94/60 (71) 4/18/18 16:45 100 4/18/18 16:45 71 4/18/18 16:40 71 100 4/18/18 16:35 66 100 4/18/18 16:31 76 127/89 (102) 4/18/18 16:30 75 100 4/18/18 16:25 83 97 4/18/18 16:20 86 100 4/18/18 16:15 20 4/18/18 16:15 80 99 4/18/18 16:15 98.0 4/18/18 16:10 83 100 4/18/18 16:08 72 142/76 (98) 4/18/18 16:05 69 100 4/18/18 16:00 73 131/82 (98) 100 4/18/18 16:00 69 4/18/18 15:55 80 100 4/18/18 15:50 77 100 4/18/18 15:46 76 129/81 (97) 4/18/18 15:45 78 100 4/18/18 15:40 79 100 4/18/18 15:35 81 100 4/18/18 15:31 69 156/58 (90) 4/18/18 15:30 66 100 18 15:25 65 100 18 15:20 74 100 18 15:16 80 142/57 (85) 05/29/17 15:15 84 100 18 15:10 75 100 05/29/17 15:05 84 100 05/29/17 15:01 86 128/79 (95) 05/29/17 15:00 72 100 05/29/17 14:55 87 05/29/17 14:50 69 05/29/17 14:45 79 132/82 (99) 05/29/17 14:45 151 05/29/17 14:40 93 05/29/17 14:35 78 05/29/17 14:31 78 121/80 (94) 05/29/17 14:30 98.0 18 05/29/17 14:30 77 05/29/17 14:25 79 05/29/17 14:20 92 05/29/17 14:19 92 122/85 (97) 05/29/17 14:15 77 131/77 (95) 05/29/17 14:11 87 121/82 (95) 05/29/17 14:10 83 100 05/29/17 14:05 87 05/29/17 14:05 85 131/70 (90) 100 05/29/17 14:00 88 05/29/17 14:00 85 127/74 (91) 99 18 13:59 87 129/66 (87) 18 13:55 99 133/111 (118) 100 05/29/17 13:53 105 132/83 (99) 18 13:35 90 100 18 13:30 105 100 18 13:25 82 100 18 12:29 97.8 20 18 12:20 98 119/88 (98) Objective Remarks GENERAL: Well-nourished, well-developed patient. CARDIOVASCULAR: Regular rate and rhythm without murmurs, gallops, or rubs. RESPIRATORY: Breath sounds equal bilaterally. No accessory muscle use. ABDOMEN/GI: Abdomen soft, non-tender. Fundus: Firm, non-tender at umbilicus. GENITOURINARY: Light to moderate bleeding. EXTREMITIES: No cyanosis or edema, non-tender, without signs of DVT. Medications and IVs Current Medications Medications (Trade) Dose Ordered Sig/Mary Route Start Time Stop Time Status Last Admin Oxytocin 500 ml @ 0 mls/hr TITRATE PRN IV 05/29/17 15:45 (NS Flush) 2 ml BID IV FLUSH 05/29/17 21:00 05/30/17 08:02 (NS Flush) 2 ml UNSCH PRN IV FLUSH 05/29/17 20:45 (Tylenol) 650 mg Q4H PRN PO 05/29/17 20:45 (Motrin) 800 mg Q8H PRN PO 05/29/17 20:45 05/30/17 08:02 (Percocet 5-325 Mg) 1 tab Q4H PRN PO 05/29/17 20:45 (Americaine 20% Top Spr) 1 spray Q4H PRN TOPICAL 05/29/17 20:45 05/30/17 08:02 (Tucks Pads) 1 applic QID PRN TOPICAL 05/29/17 20:45 05/30/17 08:02 (Sharita-Colace) 2 tab Q12H PRN PO 05/29/17 20:45 (Ambien) 5 mg HS PRN PO 05/29/17 20:45 (Boostrix Inj) 0.5 ml ONCE ONCE IM 05/30/17 16:00 05/30/17 16:01 (Mag-Al Plus Susp Liq) 15 ml Q8H PRN PO 05/29/17 20:45 (Zofran Odt) 4 mg Q6H PRN PO 05/29/17 20:45 Assessment/Plan Assessment and Plan 27 year old female PPD# 1 s/p . -Continue routine care. -Acetaminophen and Motrin PRN pain. -Encouraged OOB. Advised pelvic rest for 6 wks. -Re: ctrl, she would like to think about it. -Anticipate discharge 1 day. COLIN Astorga Discharge Planning Likely d/c tomorrow. Ivania Awan MD R2 May 30, 2017 08:34
[2017-05-30] MEDS: oxyCODONE/ACETAMINOPHEN 5 MG/325 MG TAB PO PRN ×2 (14:17→23:33)
[2017-05-30] MEDS ORDERED: DIPHTH/TETANUS/ACEL PERTUSSIS (BOOSTER) 0.5 ML VIAL/PFS IM ONE (16:00)
[2017-05-30 20:00] VITALS: BP 131/86; PULSE 120; RESP 18; TEMP 98.2; O2SAT 98
[2017-05-31 08:00] VITALS: BP 122/79; PULSE 92; RESP 18; TEMP 97.6; O2SAT 100
[2017-05-31] MEDS: IBUPROFEN 800 MG TAB PO PRN (08:11)
[2017-05-31] MEDS ORDERED: IBUP1TAB7 PO (10:13)
--- NOTE | 2017-05-31 10:14 | HHI.DCPOC ---
Discharge Care Plan Diagnosis: (1) Vaginal delivery (2) Short cervical length during Report Symptoms to Your Doctor -Temperature above 100.5 degrees -Redness, of incision or excessive or foul smelling drainage -Unusual pain or calf pain -Increased vaginal bleeding -Painful or difficulty urinating -Feelings of extreme sadness or anxiety after 2 weeks Goals to Promote Your Health * To prevent worsening of your condition and complications * To maintain your health at the optimal level Directions to Meet Your Goals Take your medications as prescribed Follow your dietary instruction Follow activity as directed Ensure plenty of rest for recovery Drink fluids for hydration Keep your appointments as scheduled Take your immunizations and boosters as scheduled If your symptoms worsen call your PCP, if no PCP go to Urgent Care Center or Emergency Room Smoking is Dangerous to Your Health. Avoid second hand smoke Call the 24-hour crisis hotline for domestic abuse at Ivania Awan MD R2 May 31, 2017 10:14
== END 2017-05-31 14:19 | disposition home or self-care (01) | DRG 775 ==
LOC: H2EB 11:54 → H1EA 22:43
PROVIDERS: ADMIT Obstetrics & Gynecology Maternal & Fetal Medicine; ATTEND Obstetrics & Gynecology Maternal & Fetal Medicine
PROC: 10E0XZZ Delivery of Products of Conception, External Approach (ICD-10-PCS; principal; 2017-05-29)
PROC: 10907ZC Drainage of Amniotic Fluid, Therapeutic from Products of Conception, Via Natural or Artificial Opening (ICD-10-PCS; 2017-05-29)
PROC: 0HQ9XZZ Repair Perineum Skin, External Approach (ICD-10-PCS; 2017-05-29)
DX: O48.0 Post-term pregnancy (principal); O34.33 Maternal care for cervical incompetence, third trimester; O99.12 Other diseases of the blood and blood-forming organs and certain disorders involving the immune mechanism complicating childbirth; O71.4 Obstetric high vaginal laceration alone; D56.3 Thalassemia minor; O77.0 Labor and delivery complicated by meconium in amniotic fluid; Z37.0 Single live birth; Z3A.40 40 weeks gestation of pregnancy
CPT/HCPCS: 80307; 81001; 85025; 87086; G0481; J2540; J7120

== ENCOUNTER 2017-12-03 15:17 | Observation (INO) ==
--- NOTE | 2017-12-03 16:53 | ED ---
History of Present Illness Primary Care Physician: UNKNOWN Chief Complaint: Abdominal pain History of Present Illness: Patient is a 27-year-old who presents today with abdominal pain. She woke up from a nap at 1430 this afternoon with 10/10 sharp/crampy lower abdominal pain that then started traveling to the back. Since that time the pain has improved slightly, 7/10 at this time. The pain is constant and does not vary from minute to minute. She also reports urgency and frequent urination today, without pain or burning with urination. This has been complicated with a short cervix. Past transvaginal ultrasound on 11/26 showed a cervical length of 21 mm. Her prior was also complicated by short cervix, but she ended up delivering at 40 weeks 6 days. She has been on prescribed bedrest, however is unable to do that because she to cook, clean, and take care of her 6-month-old baby. She denies headache, visual changes, chest pain, palpitations, shortness of breath, nausea, vomiting, diarrhea, constipation, pain with urination, increase or malodorous vaginal discharge, vaginal bleeding, leg pain or cramping. Past medical history: Denies other medical problems Surgical history: only cerclage placement Social: Denies tobacco, alcohol or other drug use Weeks Gestation:: 21 Para: 1 : 3 Review of Systems All other systems reviewed negative except as stated in HPI PMFSH - History History Provided By: Patient - Medical History Medical History: Medical History (This Medical Record has been edited. Action required.) Patient denies medical problems - Surgical History Surgical History: Surgical History (This Medical Record has been edited. Action required.) History of cervical cerclage - Tobacco History Second Hand Smoke Exposure: No Smoking Status: Former smoker - Alcohol History How Often Do You Have a Drink Containing Alcohol: Never - Substance Use History Substance History: No History of Abuse Medications and Allergies Allergies Allergy/AdvReac Type Severity Reaction Status Date / Time No Known Allergies Allergy Verified 11/28/17 21:27 Home Medications Medication Instructions Recorded Confirmed Type 1 tab PO DAILY 12/03/17 12/03/17 History Exam Vital signs: Vital Signs 12/03/17 16:10 12/03/17 16:12 12/03/17 16:35 Temperature 98.4 F Pulse Rate 86 87 85 Respiratory Rate 18 Blood Pressure 118/67 Narrative: General: Alert, well appearing, in no acute distress Skin: Warm and dry HEENT: Atraumatic. Moist mucus membranes Cardiac: Regular rate and rhythm without murmur Pulmonary: No increased work of breathing. Clear to auscultation bilaterally with good air movement. Abdominal: Non-tender. gravid uterus Extremities: 2+ pedal pulses, no edema, no calf tenderness Genitourinary: performed by Dr. Lama White discharge Closed cervix, but difficult to assess Uterine Contractions: none Doppler: HR of 150 Assessment and Plan - Diagnosis (1) 21 weeks gestation of Code(s): Z3A.21 - 21 weeks gestation of Status: Acute (2) Short cervical length during Code(s): O26.879 - Cervical shortening, unspecified trimester Status: Acute - Plan Patient is an 27-year-old with short cervical length who presents with abdominal pain. Short cervical length + crampy pain -Most recent ultrasound on 11/26 showed cervical length of 21 mm -No contractions on the monitor at this time -While she does describe her pain as crampy and sharp, it does not come in waves and likely does not represent contractions -Cervix felt closed on exam, however was difficult to assess -Transvaginal ultrasound pending Abdominal pain: -This may be mostly muscular in nature due to her activity level with a 6-month- old baby, she was advised on the importance of rest -She also has urgency on urination, UA and wet prep are pending -Antibiotic therapy will be considered if UA or wet prep are suspicious for infection She will be discharged home if there is no significant change of her cervical length on transvaginal US. She was advised on the importance of bed rest due to her short cervix. Discharge Plan - Discharge Disposition Patient Disposition: 50 Hospice/Home - Discharge Condition Condition: Good - Physicians Team ED Provider: Vivien Lama Primary Care Provider: UNKNOWN, - Rxs /Orders / Referrals /Forms Prescriptions: No Action 1 tab PO DAILY Referrals: Primary Care Jesus,Jasmin [Family Provider] - See Instructions UNKNOWN, [Primary Care Provider] - See Instructions - Discharge Instructions Print Language: Spanish
[2017-12-03 17:26] LABS: Bilirubin,Urine Negative (Negative); Clarity,Urine Cloudy (Clear); Color,Urine Yellow (Yellw/Straw); Glucose,Urine (UA) Negative (Negative); Leukocyte Esterase,Urine Moderate (Negative); Mucus,Urine Moderate /lpf (Occasional); Nitrite,Urine Negative (Negative); Squamous Epithelial Cell,Urine 11 /hpf (0-5)
[2017-12-03] MEDS ORDERED: Acetaminophen 325 MG Tablet PO ONE (17:26)
[2017-12-03] MEDS ORDERED: Zolpidem Tartrate 5 MG Tablet PO PRN (19:36)
[2017-12-03] MEDS ORDERED: Acetaminophen 325 MG Tablet PO PRN (19:36)
[2017-12-03] MEDS ORDERED: Acetaminophen/Codeine 300/30 MG Tablet PO PRN ×2 (19:39)
--- NOTE | 2017-12-03 20:04 | P.HPOB ---
History of Present Illness Primary Care Physician: UNKNOWN Chief Complaint: Abdominal pain History of Present Illness: Patient is a 27-year-old who presented to OB triage today with c/o lower abdominal pain. She woke up from nap with crampy lower abdominal pain radiating to lower back bilaterally. Initially pain was 7/10 but has now slightly improved to 5/10. Denies dysuria but reports urgency and frequent urination today. This has been complicated by a short cervix. Past transvaginal ultrasound on 11/26 showed a cervical length of 21 mm. Her prior was also complicated by short cervix, but she ended up delivering at 40 weeks 6 days. She has been on prescribed bedrest, however is unable to do that because she has a 6 month old baby with no help at home. She denies headache, visual changes, chest pain, palpitations, shortness of breath, nausea, vomiting, diarrhea, constipation, pain with urination, increase or malodorous vaginal discharge, vaginal bleeding, leg pain or swelling. Allergies: none meds: Past medical history: Denies other medical problems Surgical history: cerclage placement x2 Social: lives alone with son, Denies tobacco, alcohol or other illicit drug use [employer]: x1 previous : Cerclage placement at 16 weeks Current : Cerclage placement on 10/23/17 (~ 16wks) Denies any past history of cervical procedures h/o of chlamydia during 1st Weeks Gestation:: 21 Para: 1 : 2 Review of Systems All other systems reviewed negative except as stated in HPI PMFSH - History History Provided By: Patient - Medical / Surgical Hx Neg / Unobtainable Medical Problems Denied: Yes - Medical History Medical History: Medical History (This Medical Record has been edited. Action required.) Patient denies medical problems - Surgical History Surgical History: Surgical History (This Medical Record has been edited. Action required.) History of cervical cerclage - Family History Family History: Family History (This Medical Record has been edited. Action required.) Grandparent Sickle cell trait - Social History I have reviewed the patient's Social History: Yes - Tobacco History Second Hand Smoke Exposure: No Smoking Status: Former smoker - Alcohol History How Often Do You Have a Drink Containing Alcohol: Never - Substance Use History Substance History: No History of Abuse - Travel History Recent Travel in the [facility] Within the Last 8 Weeks: No Recent Travel Out of the Country Within the Last 8 Weeks: No Medications and Allergies Active Medications: Active Medications Acetaminophen (Tylenol) 650 mg PO Q4H PRN PRN Reason: PAIN SCALE 1 TO 5 Acetaminophen/Codeine Phosphate (Tylenol W/Cod #3) 1 tab PO Q4H PRN PRN Reason: PAIN SCALE 4 TO 6 MODERATE Acetaminophen/Codeine Phosphate (Tylenol W/Cod #3) 2 tab PO Q4H PRN PRN Reason: PAIN SCALE 7 TO 10 SEVERE Ondansetron HCl (Zofran Odt) 4 mg PO Q6H PRN PRN Reason: NAUSEA OR VOMITING Zolpidem Tartrate (Ambien) 5 mg PO HS PRN PRN Reason: SLEEP Allergies Allergy/AdvReac Type Severity Reaction Status Date / Time No Known Allergies Allergy Verified 11/28/17 21:27 Home Medications Medication Instructions Recorded Confirmed Type 1 tab PO DAILY 12/03/17 12/03/17 History Exam Vital signs: Vital Signs 12/03/17 16:10 12/03/17 16:12 12/03/17 16:35 Temperature 98.4 F Pulse Rate 86 87 85 Respiratory Rate 18 Blood Pressure 118/67 12/03/17 16:50 12/03/17 17:25 12/03/17 19:42 Temperature Pulse Rate 83 81 92 H Respiratory Rate 18 Blood Pressure 12/03/17 19:43 Temperature Pulse Rate 96 H Respiratory Rate Blood Pressure 124/72 Intake & Output 12/03/17 12/03/17 12/04/17 06:59 18:59 06:59 Weight 93 kg Narrative: General: Alert, well appearing, in no acute distress Skin: Warm and dry HEENT: Atraumatic. Moist mucus membranes Cardiac: Regular rate and rhythm without murmur. Normal S1-S2. Pulmonary: Clear to auscultation bilaterally with good air movement. Abdominal: Gravid abdomen, soft, non-tender. No CVA tenderness Extremities: 2+ pedal pulses, no edema, no calf tenderness Genitourinary: performed by Dr. Lama White discharge Closed cervix, but difficult to assess Uterine Contractions: none Results - Labs Labs: Laboratory Results - last 24 hr 12/03/17 16:07 Urine Color Yellow Urine Clarity Cloudy H Urine pH 5.0 Ur Specific [place] 1.020 Urine Protein Negative Urine Glucose (UA) Negative Urine Ketones 20 Urine Occult Blood Negative Urine Nitrate Negative Urine Bilirubin Negative Urine Urobilinogen Less than 2 Ur Leukocyte Esterase Moderate H Urine RBC 1 Urine WBC 6 H Ur Squamous Epith Cells 11 Urine Mucus Moderate H Ur Microscopic Review Not Reportable Caprini VTE Risk Assessment Caprini VTE Risk Assessment: No/Low Risk (score <= 1) Caprini Risk Assessment Model: Point Value = 1 Point Value = 2 Point Value = 3 Point Value = 5 Age 41-60 Minor surgery BMI > 25 kg/m2 Swollen legs Varicose veins or History of unexplained or recurrent spontaneous Oral contraceptives or hormone replacement Sepsis (< 1 month) Serious lung disease, including pneumonia (< 1 month) Abnormal pulmonary function Acute myocardial infarction Congestive heart failure (< 1 month) History of inflammatory bowel disease Medical patient at bed rest Age 61-74 Arthroscopic surgery Major open surgery (> 45 min) Laparoscopic surgery (> 45 min) Malignancy Confined to bed (> 72 hours) Immobilizing plaster cast Central venous access Age >= 75 History of VTE Family history of VTE Factor V Leiden Prothrombin [id number] Lupus anticoagulant Anticardiolipin antibodies Elevated serum homocysteine Heparin-induced thrombocytopenia Other congenital or acquired thrombophilia Stroke (< 1 month) Elective arthroplasty Hip, pelvis, or leg fracture Acute spinal cord injury (< 1 month) Prophylaxis Regimen: Total Risk Factor Score Risk Level Prophylaxis Regimen 0-1 Low Early ambulation 2 Moderate Order ONE of the following: *Sequential Compression Device (SCD) *Heparin 5000 units SQ BID 3-4 Higher Order ONE of the following medications: *Heparin 5000 units SQ TID *Enoxaparin/Lovenox 40 mg SQ daily (WT < 150 kg, CrCl > 30 mL/min) *Enoxaparin/Lovenox 30 mg SQ daily (WT < 150 kg, CrCl > 10-29 mL/min) *Enoxaparin/Lovenox 30 mg SQ BID (WT < 150 kg, CrCl > 30 mL/min) AND/OR *Sequential Compression Device (SCD) 5 or more Highest Order ONE of the following medications: *Heparin 5000 units SQ TID (Preferred with Epidurals) *Enoxaparin/Lovenox 40 mg SQ daily (WT < 150 kg, CrCl > 30 mL/min) *Enoxaparin/Lovenox 30 mg SQ daily (WT < 150 kg, CrCl > 10-29 mL/min) *Enoxaparin/Lovenox 30 mg SQ BID (WT < 150 kg, CrCl > 30 mL/min) AND *Sequential Compression Device (SCD) Assessment and Plan - Diagnosis (1) 21 weeks gestation of Code(s): Z3A.21 - 21 weeks gestation of Status: Acute (2) Short cervical length during Code(s): O26.879 - Cervical shortening, unspecified trimester Status: Acute (3) Vaginal discharge Code(s): N89.8 - Other specified noninflammatory disorders of vagina Status: Acute - Plan Patient is an 27-year-old with short cervical length who presented to OB triage with c/o abdominal pain. VS WNL. Short cervical length + crampy pain -Most recent ultrasound on 11/26 showed cervical length of 21 mm -No contractions on the monitor -Cervix felt closed on exam, however was difficult to assess -Transvaginal ultrasound showed cervical length of 13mm -Plan to keep patient for observation overnight and recheck cervical length in the morning followed by MFM consultation -She was advised on the importance of bed rest due to her short cervix. Abdominal pain -Likely round ligament pain -Tylenol with codeine for pain control Vaginal discharge noted on speculum exam -also c/o has urgency on urination -UA: Cloudy, moderate leukocyte esterase, urine white blood cells of 6 - f/u wet prep -Antibiotic therapy will be considered if UA or wet prep are suspicious for infection IUP at 21 weeks -Routine care -Encourage oral hydration -Normal diet discussed with Dr. Lama
[2017-12-04 10:33] VITALS: BP 121/61; PULSE 86; RESP 17; TEMP 98.2
--- NOTE | 2017-12-04 11:42 | P.OBGPN ---
Pt U/S completed and reviewed with OB team. Cervix 4cm. Patient given precautions of bedrest and to f/u with MFM in 1 week. All questions answered.
== END 2017-12-04 14:18 | disposition home or self-care (01) ==
LOC: HOBED 15:17 → H2E 15:17
PROVIDERS: ADMIT Obstetrics & Gynecology; ATTEND Obstetrics & Gynecology